=== PATIENT | male | born 1940 | race Hispanic/Latino ===

== ENCOUNTER 2017-09-19 11:44 | Inpatient (IN) | payer MEDICARE ==
[~2017-09-19] VITALS: Ht 170.2 cm; Wt 59.4 kg
[~2017-09-19 11:44] MED LIST: ASPIR 8181 MG PO; ASPIRIN325 MG PO; COLACE100 MG PO; DONEPEZIL HCL10 MG PO; FOLIC ACID1 MG PO; GEMFIBROZIL600 MG PO; METAMUCIL0.52 GM PO; METOPROLOL SUCC25 MG PO; MIRTAZAPINE30 MG PO; MONTELUKAST SOD10 MG PO; NAMENDA10 MG; NORVASC10 MG PO; SERTRALINE HCL25 MG PO; SIMVASTATIN40 MG PO; ZESTRIL20 MG PO
[2017-09-19] MEDS ORDERED: RANEXA500 MG PO (11:56)
[2017-09-19] MEDS ORDERED: NAMZARIC PO (11:56)
[2017-09-19] MEDS ORDERED: CLOPIDOGREL75 MG PO (11:56)
--- NOTE | 2017-09-19 12:30 | Diagnostic Imaging Report ---
PROCEDURE: A single AP view of the chest. COMPARISON: 05/12/17 INDICATIONS: AMS, FEVER, COUGH FINDINGS: Lines/tubes: None. Lungs: The lungs are well inflated. Mild right infrahilar opacification. Unchanged increased lung markings of the left upper lobe, likely mild scaring. Pleura: There is no pleural effusion or pneumothorax. Heart and mediastinum: The heart and the mediastinum are unremarkable. Median sternotomy wires and mediastinal surgical clips. Bones: No acute bony abnormality. IMPRESSION: Mild right infrahilar opacification. Developing infiltrate cannot be excluded. Dictated by: Vega Linda M.D. on 09/19/2017 at 12:38 Electronically approved by: Vega Linda M.D. on 09/19/2017 at 12:38
[2017-09-19 12:33] LABS: BASOPHILS % 0.3 % (0.0-1.0); EOSINOPHILS # (AUTO) 0.1 (0.0-0.4); EOSINOPHILS % 0.6 % (0.0-6.0); HEMATOCRIT 39.6 % (38.2-49.6); HEMOGLOBIN 12.8 g/dL (14.0-18.0); LYMPHOCYTES # (AUTO) 1.1 (1.0-3.2); MEAN CORPUSCULAR HEMOGLOBIN 29.1 pg (28-32); MEAN CORPUSCULAR HGB CONC 32.3 g/dL (31-35); MONOCYTES # (AUTO) 0.7 (0.2-0.8); NEUTROPHILS # (AUTO) 8.1 (2.1-6.9); NEUTROPHILS % 80.7 % (38.7-80.0); PLATELET COUNT 243 x10e3/uL (140-360); RED CELL DISTRIBUTION WIDTH 15.6 % (11.7-14.4)
[2017-09-19] MEDS ORDERED: SODIUM CHLORIDE 0.9% 500ML 500 ML IV ONE (12:45)
[2017-09-19] MEDS ORDERED: CEFTRIAXONE SOD 1 GM VIAL IM ONE (12:45)
[2017-09-19] MEDS ORDERED: CLINDAMYCIN 300MG 50 ML IV ONE (12:45)
[2017-09-19 12:50] LABS: ALBUMIN 3.8 g/dL (3.5-5.0); ALBUMIN/GLOBULIN RATIO 0.8 (0.8-2.0); CALCIUM 9.5 mg/dL (8.4-10.2); CREATININE, SERUM 1.36 mg/dL (0.72-1.25)
[2017-09-19 12:57] LABS: CREATINE KINASE MB 0.3 ng/mL (0.00-5.00); TROPONIN I 0.04 ng/mL (0-0.300)
[2017-09-19] MEDS ORDERED: SODIUM CHLORIDE 0.9% 1000ML 1,000 ML ONE (13:21)
[2017-09-19] MEDS: SODIUM CHLORIDE FLUSH 10 ML SYR INJ PRN (13:31)
[2017-09-19] MEDS ORDERED: ACETAMINOPHEN 325 MG TAB PO PRN (13:45)
[2017-09-19] MEDS ORDERED: SODIUM CHLORIDE FLUSH 10 ML SYR INJ PRN (13:45)
[2017-09-19] MEDS ORDERED: ONDANSETRON HCL INJ 2 MG/ML VIAL IV PRN (13:45)
[2017-09-19] MEDS ORDERED: AZITHROMYCIN 500MG/SOD CHL 0.9% 250ML BAG IV SCH (13:45)
[2017-09-19] MEDS: CEFTRIAXONE SOD 1 GM VIAL IV SCH (13:46)
[2017-09-19] MEDS: SODIUM CHLORIDE 0.9% 1000ML 1,000 ML IV SCH ×2 (13:46→21:34)
[2017-09-19] MEDS ORDERED: CLINDAMYCIN 300MG 50 ML IV SCH ×2 (14:00→14:09)
[2017-09-19] MEDS: AZITHROMYCIN 500MG/NS 250 ML 250 ML IV SCH (16:06)
[2017-09-19 17:34] VITALS: BP 95/57
[2017-09-19 17:47] VITALS: BP 95/57
[2017-09-19 20:00] VITALS: BP 100/45
[2017-09-19] MEDS: CLINDAMYCIN 300MG 50 ML IV SCH (22:15)
[2017-09-20] VITALS: BP 99/57
[2017-09-20 04:00] VITALS: BP 98/59
[2017-09-20] MEDS: SODIUM CHLORIDE 0.9% 1000ML 1,000 ML IV SCH ×3 (05:34→14:00)
--- NOTE | 2017-09-20 06:22 | Diagnostic Imaging Report ---
CHEST SINGLE (PORTABLE), 09/20/2017 5:00 AM Technique: CHEST SINGLE (PORTABLE) Comparison: 09/19/2017 Clinical history: Pneumonia Findings: See Impression Impression: 1. Stable cardiomediastinal silhouette post sternotomy. 2. Central vascular congestion with mild bibasilar vascular crowding/atelectasis. 3. No effusion or pneumothorax. Signed by: Dr Libby Weaver MD on 09/20/2017 6:19 AM
[2017-09-20 06:49] LABS: BASOPHILS % 0.3 % (0.0-1.0); EOSINOPHILS # (AUTO) 0.2 (0.0-0.4); EOSINOPHILS % 2.2 % (0.0-6.0); HEMATOCRIT 31.1 % (38.2-49.6); LYMPHOCYTES # (AUTO) 2.6 (1.0-3.2); LYMPHOCYTES % 24.6 % (18.0-39.1); MEAN CORPUSCULAR HEMOGLOBIN 29.1 pg (28-32); MEAN CORPUSCULAR HGB CONC 32.2 g/dL (31-35); MEAN CORPUSCULAR VOLUME 90.4 fL (81-99); MONOCYTES # (AUTO) 0.9 (0.2-0.8); MONOCYTES % 8.1 % (4.4-11.3); NEUTROPHILS # (AUTO) 6.9 (2.1-6.9); NEUTROPHILS % 64.1 % (38.7-80.0); PLATELET COUNT 181 x10e3/uL (140-360); RED BLOOD COUNT 3.44 x10e6/uL (4.3-5.7); RED CELL DISTRIBUTION WIDTH 15.7 % (11.7-14.4)
[2017-09-20 07:10] LABS: ALANINE AMINOTRANSFERASE 9 IU/L (0-55); ALBUMIN 2.7 g/dL (3.5-5.0); ALBUMIN/GLOBULIN RATIO 0.8 (0.8-2.0); ALKALINE PHOSPHATASE 87 IU/L (40-150); ANION GAP 10.1 mmol/L (8-16); BLOOD UREA NITROGEN 25 mg/dL (7-26); BUN/CREATININE RATIO 22 (6-25); CALCIUM 8.4 mg/dL (8.4-10.2); CARBON DIOXIDE 25 mmol/L (22-29); CHLORIDE 109 mmol/L (98-107); CREATININE, SERUM 1.14 mg/dL (0.72-1.25); EST GLOMERULAR FILTRATION RATE > 60 ML/MIN (60-); GLUCOSE 81 mg/dL (74-118); POTASSIUM 4.1 mmol/L (3.5-5.1); SODIUM 140 mmol/L (136-145)
[2017-09-20] MEDS: CLINDAMYCIN 300MG 50 ML IV SCH ×4 (07:24→18:27)
[2017-09-20 07:48] VITALS: BP 128/72
[2017-09-20] MEDS: CEFTRIAXONE SOD 1 GM VIAL IV SCH (13:13)
[2017-09-20 13:30] VITALS: BP 135/98
[2017-09-20] MEDS: AZITHROMYCIN 500MG/NS 250 ML 250 ML IV SCH (18:30)
[2017-09-20] MEDS: SODIUM CHLORIDE FLUSH 10 ML SYR INJ PRN (18:30)
[2017-09-20 21:50] LABS: BILIRUBIN,URINE NEGATIVE (NEGATIVE); CLARITY,URINE CLEAR (CLEAR); COLOR,URINE YELLOW (YELLOW); KETONES,URINE NEGATIVE (NEGATIVE); LEUKOCYTE ESTERASE ,URINE NEGATIVE (NEGATIVE); NITRITE,URINE NEGATIVE (NEGATIVE); PROTEIN,URINE DIPSTICK NEGATIVE (NEGATIVE); URINE UROBILINOGEN 1 mg/dL (0.2 - 1)
[2017-09-20 21:55] LABS: BACTERIA,URINE RARE /HPF; MUCUS,URINE FEW (RARE); WBC,URINE (MAN) 0-5 /HPF (0-5)
[2017-09-21] MEDS: SODIUM CHLORIDE 0.9% 1000ML 1,000 ML IV SCH ×3 (01:15→13:34)
[2017-09-21] MEDS: CLINDAMYCIN 300MG 50 ML IV SCH ×3 (01:16→18:00)
[2017-09-21 11:35] VITALS: BP 139/74
[2017-09-21 14:42] VITALS: BP 149/75
[2017-09-21] MEDS: CEFTRIAXONE SOD 1 GM VIAL IV SCH (16:01)
[2017-09-21] MEDS: AZITHROMYCIN 500MG/NS 250 ML 250 ML IV SCH (16:55)
[2017-09-21 19:30] VITALS: BP 137/71
[2017-09-22] VITALS: BP 131/76
[2017-09-22] MEDS: CLINDAMYCIN 300MG 50 ML IV SCH ×2 (02:00→11:26)
[2017-09-22] MEDS: SODIUM CHLORIDE 0.9% 1000ML 1,000 ML IV SCH ×3 (03:00→13:34)
[2017-09-22 04:00] VITALS: BP 124/69
[2017-09-22 06:23] LABS: BASOPHILS % 0.6 % (0.0-1.0); EOSINOPHILS # (AUTO) 0.3 (0.0-0.4); EOSINOPHILS % 4.3 % (0.0-6.0); HEMATOCRIT 28.8 % (38.2-49.6); HEMOGLOBIN 9.5 g/dL (14.0-18.0); LYMPHOCYTES # (AUTO) 1.9 (1.0-3.2); LYMPHOCYTES % 27.4 % (18.0-39.1); MEAN CORPUSCULAR HEMOGLOBIN 29.1 pg (28-32); MEAN CORPUSCULAR VOLUME 88.3 fL (81-99); MONOCYTES # (AUTO) 0.5 (0.2-0.8); MONOCYTES % 7.5 % (4.4-11.3); NEUTROPHILS # (AUTO) 4.1 (2.1-6.9); NEUTROPHILS % 59.9 % (38.7-80.0); PLATELET COUNT 175 x10e3/uL (140-360); RED BLOOD COUNT 3.26 x10e6/uL (4.3-5.7); RED CELL DISTRIBUTION WIDTH 15.8 % (11.7-14.4)
[2017-09-22 06:56] LABS: ANION GAP 9.9 mmol/L (8-16); BLOOD UREA NITROGEN 13 mg/dL (7-26); BUN/CREATININE RATIO 15 (6-25); CALCIUM 8.3 mg/dL (8.4-10.2); CARBON DIOXIDE 24 mmol/L (22-29); CHLORIDE 113 mmol/L (98-107); CREATININE, SERUM 0.88 mg/dL (0.72-1.25); EST GLOMERULAR FILTRATION RATE > 60 ML/MIN (60-); GLUCOSE 85 mg/dL (74-118); POTASSIUM 3.9 mmol/L (3.5-5.1); SODIUM 143 mmol/L (136-145)
[2017-09-22 07:36] VITALS: BP 143/80
--- NOTE | 2017-09-22 10:11 | Diagnostic Imaging Report ---
PROCEDURE: X-RAY CHEST, TWO VIEWS COMPARISON: Patients [facility], DX, CHEST SINGLE (PORTABLE), 09/20/2017, 5:04. INDICATIONS: PNEUMONIA FINDINGS: LUNGS: Resolution of the previously identified central vascular congestion. Residual right basilar medial opacity may represent pneumonia in the correct clinical setting. PLEURA: No effusions or pneumothorax. HEART \T\ MEDIASTINUM: The heart is within normal size-limits. There are sternotomy wire sutures and mediastinal clips. BONES \T\ SOFT TISSUES: No acute findings. Degenerative changes of the spine. CONCLUSION: 1. Resolution of the previously identified vascular congestion. 2. Residual right medial basilar opacity may represent resolving pneumonia in the correct clinical setting. Santana Coffey D.O. Dictated by: Santana Coffey D.O. on 09/22/2017 at 10:19 Electronically approved by: Santana Coffey D.O. on 09/22/2017 at 10:19
[2017-09-22 11:36] VITALS: BP 146/85
[2017-09-22] MEDS ORDERED: CEFTIN250 MG/5 M PO (14:37)
[2017-09-22] MEDS ORDERED: OLANZAPINE 5 MG TAB PO PRN (14:45)
--- NOTE | 2017-09-22 15:45 | Consultation ---
DATE OF CONSULTATION: September 21, 2017 PSYCHIATRIC CONSULTATION The patient was seen yesterday, September 21, 2017. [employer] was not working properly remotely, so medications were not able to be adjusted at that time. REASON FOR CONSULTATION: To evaluate the patient's behavior. HISTORY OF PRESENT ILLNESS: The patient is a 77-year-old male admitted to the hospital for pneumonia. Psychiatric consultation is called to evaluate the patient's psychosis and dementia. As per medical record, the patient has history of dementia. The patient was found to be in the room. He is ambulatory. He is alert, awake and oriented to self and place, but not to time. He is pleasant, unable to answer questions appropriately. He denies any depression or anxiety. He denies hallucination. He is somewhat suspicious. He denies any suicidal or homicidal ideation. He denies any problem with sleep or appetite. He denies any side effects from his medications. PAST PSYCHIATRIC HISTORY: Patient has a history of dementia as per record. He denies past suicide attempt. He denies alcohol or drug use. FAMILY HISTORY: The patient denies any family history of psychiatric illness. SOCIAL HISTORY: The patient said he lives with his . MENTAL STATUS EXAMINATION: The patient is an elderly male. He is alert, awake and oriented to situation, self and place. Thought process is concrete. He does not elicit paranoid or delusional thinking, but is somewhat suspicious. Affect is blunt. Psychomotor state is passive and relaxed. Insight and judgment are limited to fair. Memory is grossly impaired. CURRENT MEDICATIONS 1. Ceftriaxone. 2. Clindamycin. 3. Acetaminophen. 4. Azithromycin. 5. Sodium chloride. 6. Ondansetron. LABS: WBC 10.71, RBC 3.44, hemoglobin 10, hematocrit 31.1, platelets 181. Sodium 140, potassium 4.1, chloride 109, CO2 25, BUN 25, creatinine 1.14. ASSESSMENT: Unspecified dementia with behavioral disturbances, rule out psychosis. PLAN 1. Add Zyprexa 2.5 mg p.o. q.6 h. p.r.n. 2. Add Namenda 5 mg p.o. daily. Thank you for this consultation. Dictated by: OSCAR Jain Job#: [id number]
[2017-09-23] MEDS ORDERED: MEMANTINE 10 MG TAB PO SCH (09:00)
== END 2017-09-22 14:55 | disposition home or self-care (01) | DRG 871 ==
LOC: ER 11:44 → ERHOLD 14:05 → IMCU 16:30
DX: A41.9 Sepsis, unspecified organism (principal); J18.9 Pneumonia, unspecified organism; N39.0 Urinary tract infection, site not specified; F03.91 Unspecified dementia, unspecified severity, with behavioral disturbance; I10 Essential (primary) hypertension; Z79.899 Other long term (current) drug therapy
CPT/HCPCS: 36415; 71010; 71020; 80048; 80053; 81001; 82550; 82553; 82948; 83605; 84484; 85025; 87040; 87086; 87400; 93005; 97139; 99284; J0456; J0696; J7030; J7040

== ENCOUNTER 2018-01-02 16:16 | Inpatient (IN) | payer MEDICARE ==
[~2018-01-02] VITALS: Ht 165.1 cm; Wt 58.5 kg
[2018-01-02] VITALS (7 sets, daily range): BP systolic 84–107; BP diastolic 29–70
[~2018-01-02 16:16] MED LIST changes: +CEFTIN250 MG/5 M PO; +CLOPIDOGREL75 MG PO; +NAMZARIC PO; +RANEXA500 MG PO
--- OUTSIDE RECORDS SUMMARY | 2018-01-02 16:19 | XMS REPORT ---
Author [facility] Address Unknown Phone Unavailable Care Team Providers Care Invoice Machine Operator Name Role Phone MARY VILLAGOMEZ Unavailable Unavailable Problems This patient has no known problems. Allergies, Adverse Reactions, Alerts This patient has no known allergies or adverse reactions. Medications This patient has no known medications. Results Test Description Test Time Test Comments Text Results Atomic Results Result Comments CHEST 2 VIEWS [place] [address] Patient Name: AMANDA OWENS MR #: [id number] : 1940 Age/Sex: 77/M Req # : [id number] [facility] Physician: MARY VILLAGOMEZ MD Ordered by: MARY VILLAGOMEZ MD Report #: [id number] Location: [facility] Room/Bed: [place] [address] Procedure: [id number] DX/CHEST 2 VIEWS Exam Date: 09/22/17 Exam Time: 0835 REPORT STATUS: Signed PROCEDURE: X-RAY CHEST, TWO VIEWS COMPARISON: [facility], DX, CHEST SINGLE ( PORTABLE), 09/20/2017, 5:04. INDICATIONS: PNEUMONIA FINDINGS: LUNGS: Resolution of the previously identified central vascular congestion. Residual right basilar medial opacity may represent pneumonia in the correct clinical setting. PLEURA: No effusions or pneumothorax. HEART T MEDIASTINUM: The heart is within normal size-limits. There are sternotomy wire sutures and mediastinal clips. BONES T SOFT TISSUES: No acute findings. Degenerative changes of the spine. CONCLUSION: 1. Resolution of the previously identified vascular congestion. 2. Residual right medial basilar opacity may represent resolving pneumonia in the correct clinical setting. Ashley Coffey D.O. Dictated by: Ashley Coffey D.O. on 09/22/2017 at 10:19 Electronically approved by: Ashley Coffey D.O. on 09/22/2017 at 10:19 Dictated By: ASHLEY COFFEY DO 1019 Transcribed By: SUE on 09/22/17 1019 COPY TO: MARY VILLAGOMEZ MD CHEST SINGLE (PORTABLE) [place] [address] Patient Name: AMANDA OWENS MR #: [id number] : 1940 Age/Sex: 77/M Req #: [id number] [facility] Physician: MARY VILLAGOMEZ MD Ordered by: [address] Report #: [id number] Location: [facility] Room/Bed: [place] [address] Procedure: [id number] DX/CHEST SINGLE (PORTABLE) Exam Date: 09/20/17 Exam Time: 0450 REPORT STATUS: Signed CHEST SINGLE (PORTABLE), 09/20/2017 5:00 AM Technique: CHEST SINGLE (PORTABLE) Comparison: 09/19/2017 Clinical history: Pneumonia Findings: See Impression Impression: 1. Stable cardiomediastinal silhouette post sternotomy. 2. Central vascular congestion with mild bibasilar vascular crowding/atelectasis. 3. No effusion or pneumothorax. Signed by: Dr Souleymane Weaver MD on 09/20/2017 6:19 AM Dictated By: SOULEYMANE WEAVER MD 8 Transcribed By: YONATAN on 09/20/17618 COPY TO: [address] CHEST SINGLE (PORTABLE) [place] [address] Patient Name: AMANDA OWENS MR #: [id number] : 1940 Age/Sex: 77/M Req #: [id number] Adm Physician: Ordered by: [address] Report #: [id number] Location: ER Room/Bed: _ Procedure: [id number] DX/CHEST SINGLE (PORTABLE) Exam Date: 09/19/17 Exam Time: 1200 REPORT STATUS: Signed PROCEDURE: A single AP view of the chest. COMPARISON: 05/12/17 INDICATIONS: AMS, FEVER, COUGH FINDINGS: Lines/tubes: None. Lungs: The lungs are well inflated. Mild right infrahilar opacification. Unchanged increased lung markings of the left upper lobe, likely mild scaring. Pleura: There is no pleural effusion or pneumothorax. Heart and mediastinum: The heart and the mediastinum are unremarkable. Median sternotomy wires and mediastinal surgical clips. Bones: No acute bony abnormality. IMPRESSION: Mild right infrahilar opacification. Developing infiltrate cannot be excluded. Dictated by: Vega Kiser M.D. on 09/19/2017 at 12:38 Electronically approved by: Vega Kiser M.D. on 09/19/2017 at 12:38 Dictated By: VEGA KISER MD 1238 Transcribed By: SUE on 09/19/17 1238 COPY TO: [address]
[2018-01-02] MEDS ORDERED: NAMZARIC (16:38)
[2018-01-02] MEDS ORDERED: METOCLOPRAMIDE HCL 10 MG TAB PO ONE (17:00)
[2018-01-02] MEDS ORDERED: METOCLOPRAMIDE HCL 10 MG/2ML VIAL IV ONE (17:30)
[2018-01-02 18:08] LABS: BILIRUBIN,URINE NEGATIVE (NEGATIVE); CLARITY,URINE CLOUDY (CLEAR); COLOR,URINE YELLOW (YELLOW); KETONES,URINE NEGATIVE (NEGATIVE); LEUKOCYTE ESTERASE ,URINE TRACE (NEGATIVE); NITRITE,URINE NEGATIVE (NEGATIVE); PROTEIN,URINE DIPSTICK NEGATIVE (NEGATIVE); URINE UROBILINOGEN 0.2 mg/dL (0.2 - 1)
[2018-01-02 18:17] LABS: BASOPHILS % 0.5 % (0.0-1.0); EOSINOPHILS # (AUTO) 0.1 (0.0-0.4); EOSINOPHILS % 0.8 % (0.0-6.0); HEMATOCRIT 36.6 % (38.2-49.6); HEMOGLOBIN 11.8 g/dL (14.0-18.0); LYMPHOCYTES # (AUTO) 1.4 (1.0-3.2); LYMPHOCYTES % 15.7 % (18.0-39.1); MEAN CORPUSCULAR HEMOGLOBIN 30.4 pg (28-32); MEAN CORPUSCULAR HGB CONC 32.2 g/dL (31-35); MEAN CORPUSCULAR VOLUME 94.3 fL (81-99); MONOCYTES # (AUTO) 0.6 (0.2-0.8); MONOCYTES % 7.3 % (4.4-11.3); NEUTROPHILS # (AUTO) 6.6 (2.1-6.9); NEUTROPHILS % 75.2 % (38.7-80.0); PLATELET COUNT 244 x10e3/uL (140-360); RED BLOOD COUNT 3.88 x10e6/uL (4.3-5.7)
[2018-01-02 18:19] LABS: ALBUMIN 4.3 g/dL (3.5-5.0); ANION GAP 15.8 mmol/L (8-16); CALCIUM 9.5 mg/dL (8.4-10.2); CREATININE, SERUM 3.18 mg/dL (0.72-1.25); MAGNESIUM 2.5 MG/DL (1.3-2.1); PHOSPHORUS 3.7 MG/DL (2.3-4.7)
[2018-01-02 18:30] LABS: POTASSIUM 7.8 mmol/L (3.5-5.1)
[2018-01-02] MEDS ORDERED: DEXTROSE 50% SYRINGE 50 ML IV STA ×2 (18:33→23:18)
[2018-01-02] MEDS ORDERED: SODIUM BICARBONATE 8.4% 50 ML VIAL IV STA (18:33)
[2018-01-02] MEDS ORDERED: ALBUTEROL SULF 0.083% NEB SOLN 3 ML NEB NEB STA (18:33)
[2018-01-02 18:39] LABS: THYROID STIMULATING HORMONE 1.694 uIU/mL (0.350-4.940)
[2018-01-02] MEDS ORDERED: INSULIN REGULAR, HUMAN 100 UNIT/1 ML 3ML VIAL IV ONE ×2 (18:45→23:30)
[2018-01-02] MEDS ORDERED: CALCIUM GLUCONATE 10% INJ 9.3 MEQ in SODIUM CHLORIDE 0.9% 100 ML 100 ML IV ONE ×2 (18:45→23:30)
[2018-01-02] MEDS ORDERED: SODIUM BICARBONATE 8.4% INJ 50 ML SYR IV NR (18:45)
[2018-01-02] MEDS ORDERED: SOD POLYSTYRENE SULFONATE SUSP 15 GM/60 ML BTL PR ONE ×2 (18:45→23:30)
[2018-01-02] MEDS ORDERED: SODIUM CHLORIDE 0.9% 1000ML 1,000 ML IV ONE (18:45)
[2018-01-02] MEDS ORDERED: ONDANSETRON HCL INJ 2 MG/ML VIAL IV PRN (19:00)
[2018-01-02] MEDS ORDERED: SODIUM CHLORIDE FLUSH 10 ML SYR INJ PRN (19:00)
--- NOTE | 2018-01-02 19:16 | Diagnostic Imaging Report ---
Knee limited left CPT code: 71044 Indication: Fall, pain. Technique: AP and lateral view obtained of the left knee. Comparison: None Findings: Moderate to severe degenerative changes of the lateral compartment with chondrocalcinosis of the lateral meniscus. Moderate degenerative changes of the patellofemoral compartment. Mild degenerative changes of the medial compartment. No joint effusion. Vascular dominick along the medial aspect of the knee. No fracture or dislocation. IMPRESSION: Tricompartmental osteoarthritis with chondrocalcinosis. No acute traumatic pathology. Signed by: Dr. Charmaine Spain MD on 01/02/2018 7:12 PM
--- NOTE | 2018-01-02 19:19 | Diagnostic Imaging Report ---
Abdomen/KUB INDICATION: Fall, pain, hiccups COMPARISON: None. FINDINGS: Lines, tubes: None Bowel: Gaseous dilatation of the sigmoid colon without pneumatosis. Exact diameter of the sigmoid colon cannot be given due to patient positioning. Moderate amount of stool throughout the ascending, transverse, and proximal descending colon. No dilated small bowel. Calcifications: None Organomegaly: None Lung bases: Median sternotomy wires are intact. Cardiac bypass changes are present. Bones: No focal osseous lesions. IMPRESSION: Gaseous dilatation of the sigmoid colon. Moderate stool burden throughout the large bowel. Sigmoid volvulus cannot be excluded. No evidence of small bowel obstruction. Signed by: Dr. Charmaine Spain MD on 01/02/2018 7:15 PM
[2018-01-02] MEDS ORDERED: CALCIUM GLUCONATE 10% INJ 0.465 MEQ/ML VIAL ONE ×2 (19:20→23:46)
[2018-01-02] MEDS ORDERED: SODIUM CHLORIDE 0.9% 50ML 100 ML ONE (19:21)
[2018-01-02 22:59] LABS: ANION GAP 11.5 mmol/L (8-16); CALCIUM 8.9 mg/dL (8.4-10.2); CREATININE, SERUM 2.89 mg/dL (0.72-1.25)
[2018-01-02 23:08] LABS: POTASSIUM 6.5 mmol/L (3.5-5.1)
[2018-01-02] MEDS ORDERED: SIMETHICONE 80 MG CHEW PO PRN (23:30)
[2018-01-02] MEDS ORDERED: LORAZEPAM INJ 2 MG/ML VIAL IV PRN (23:45)
[2018-01-03] VITALS (106 sets, daily range): BP systolic 61–151; BP diastolic 30–87
[2018-01-03] MEDS ORDERED: SODIUM CHLORIDE 0.9% 500ML 500 ML ONE (00:05)
[2018-01-03] MEDS ORDERED: ZIPRASIDONE 20 MG VIAL IM STA (00:19)
[2018-01-03] MEDS ORDERED: ZIPRASIDONE 20 MG VIAL IM ONE (00:25)
[2018-01-03] MEDS ORDERED: SODIUM CHLORIDE 0.9% 1000ML 1,000 ML ONE (00:39)
[2018-01-03] MEDS ORDERED: ALBUMIN HUMAN 100 ML IV ONE (01:12)
[2018-01-03] MEDS ORDERED: SODIUM CHLORIDE 0.45% 1,000 ML ONE (01:13)
[2018-01-03] MEDS ORDERED: SODIUM CHLORIDE 0.9% 1000ML 1,000 ML IV ONE ×2 (02:00)
[2018-01-03] MEDS ORDERED: DEXTROSE 50% SYRINGE 50 ML IV PRN (02:00)
[2018-01-03] MEDS ORDERED: ALBUMIN HUMAN 12.5GM / 50ML IV ONE (02:00)
[2018-01-03] MEDS ORDERED: DEXTROSE 50% SYRINGE 50 ML IV ONE ×2 (02:01→06:45)
[2018-01-03 04:02] LABS: BASOPHILS % 0.1 % (0.0-1.0); EOSINOPHILS # (AUTO) 0.1 (0.0-0.4); EOSINOPHILS % 0.6 % (0.0-6.0); HEMATOCRIT 26.2 % (38.2-49.6); HEMOGLOBIN 8.3 g/dL (14.0-18.0); LYMPHOCYTES # (AUTO) 1.2 (1.0-3.2); LYMPHOCYTES % 16.1 % (18.0-39.1); MEAN CORPUSCULAR HEMOGLOBIN 30.2 pg (28-32); MEAN CORPUSCULAR HGB CONC 31.7 g/dL (31-35); MEAN CORPUSCULAR VOLUME 95.3 fL (81-99); MONOCYTES # (AUTO) 0.8 (0.2-0.8); MONOCYTES % 10.8 % (4.4-11.3); NEUTROPHILS # (AUTO) 5.6 (2.1-6.9); NEUTROPHILS % 71.9 % (38.7-80.0); PLATELET COUNT 172 x10e3/uL (140-360); RED BLOOD COUNT 2.75 x10e6/uL (4.3-5.7); RED CELL DISTRIBUTION WIDTH 14.3 % (11.7-14.4)
[2018-01-03 04:19] LABS: ANION GAP 12.9 mmol/L (8-16); CALCIUM 8.9 mg/dL (8.4-10.2); CREATININE, SERUM 2.52 mg/dL (0.72-1.25); MAGNESIUM 1.9 MG/DL (1.3-2.1); PHOSPHORUS 3.4 MG/DL (2.3-4.7); POTASSIUM 5.9 mmol/L (3.5-5.1)
[2018-01-03] MEDS ORDERED: SODIUM BICARBONATE 8.4% INJ 50 ML SYR IV STA (06:44)
[2018-01-03] MEDS ORDERED: INSULIN REGULAR, HUMAN 100 UNIT/1 ML 3ML VIAL IV ONE (06:45)
[2018-01-03] MEDS ORDERED: ALBUMIN 5% 250ML IV ONE (06:45)
[2018-01-03] MEDS ORDERED: ALBUMIN 5% 500 ML IV ONE (07:20)
[2018-01-03] MEDS ORDERED: CALCIUM GLUCONATE 10% INJ 4.65 MEQ in SODIUM CHLORIDE 0.9% 50ML 50 ML IV ONE (07:30)
[2018-01-03] MEDS ORDERED: SODIUM BICARBONATE 8.4% 75 ML in SODIUM CHLORIDE 0.45% 1,000 ML IV SCH (07:45)
[2018-01-03] MEDS ORDERED: SODIUM BICARBONATE 8.4% 100 ML in DEXTROSE 5% 1,000 ML IV SCH (13:45)
[2018-01-03 14:09] LABS: CREATININE,URINE RANDOM 116.89 mg/dL (63-166); SODIUM,URINE 42 mmol/L; TOTAL PROTEIN, URINE 6.8 mg/dL (1-14)
[2018-01-03 14:52] LABS: BLOOD UREA NITROGEN 42 mg/dL (7-26); GLUCOSE 82 mg/dL (74-118); OSMOLALITY,SERUM 298 mOsm/kg (278-305); SODIUM 145 mmol/L (136-145)
[2018-01-03 14:54] LABS: ANION GAP 11.8 mmol/L (8-16); CALCIUM 8.9 mg/dL (8.4-10.2); CREATININE, SERUM 1.79 mg/dL (0.72-1.25); POTASSIUM 4.8 mmol/L (3.5-5.1)
--- NOTE | 2018-01-03 15:20 | Consultation ---
DATE OF CONSULTATION: January 03, 2018 NEPHROLOGY CONSULT REASON FOR THE CONSULT: Acute renal failure and hyperkalemia. HISTORY OF PRESENT ILLNESS: This is a 77-year-old male who is known to have hypertension on lisinopril and CKD stage 2, creatinine around 1.1 previous admissions. Recently admitted for pneumonia. He also has coronary artery disease status post CABG x3 with a recent left heart cath in May of [address] José Luis Luciano, and at that time the patient was felt that his potassium was slightly elevated. So, the patient at this time has come in because of generalized weakness, decrease in p.o. intake along with frequent falling and decrease in energy. So, he was admitted through the ER, for which it was noted that his BUN and creatinine were elevated along with his high potassium, and thus we are consulted. Overnight the patient was severely constipated. He was given enema, and his blood pressure dropped. At that time, he was bolused with fluids and given albumin, and he is currently on IV fluids. He is status post the medical treatment for potassium, and his potassium is coming down. PAST MEDICAL HISTORY: As mentioned above. PAST SURGICAL HISTORY: Status post bypass x3, status post left heart cath. SOCIAL HISTORY: Denies smoking, alcohol or IV drug abuse. Living with a daughter. ALLERGIES: NEGATIVE PER RECORDS. VITAL SIGNS: For today, blood pressure is better at 102/63, heart rate 72, and temperature is 97.5. PHYSICAL EXAMINATION GENERAL APPEARANCE: No acute distress. He is oriented to person and self. HEAD, EARS, EYES, NECK: No lymphadenopathy. HEART: Regular rate and rhythm. LUNGS: Good bilateral air entry. ABDOMEN: Soft, nontender. EXTREMITIES: No edema. LABS: His hemoglobin was 8.3, down from 11.8. His sodium is 144, potassium is down from 7.8 to 5.9, his CO2 is 19, BUN is coming down from 71 to 58, and his creatinine came down from 3.1 to 2.5. His phosphorus is 3.4, magnesium 1.9. LFTs are normal, and TSH is okay. ASSESSMENT AND PLAN 1. Acute renal failure. This could be secondary to volume depletion and dehydration. So, at this time the patient is started on IV fluids and his BUN/creatinine is already improving. Check fraction excretion of sodium. We are going to check renal ultrasound with Doppler also to rule out renal artery stenosis and check for urine culture as his urine was cloudy upon insertion. Also, there might be an element of urine retention as when the Ramirez was inserted the patient had a lot of urine coming out and it was cloudy, but it was probably sitting there for a while; so, there might be a sign of urine retention. Keep the Ramirez for now and at the same time monitor his electrolytes closely. 2. Hyperkalemia in the setting of renal failure. The patient was also on lisinopril, which we are going to stop. Will check renal ultrasound to rule out renal artery stenosis and avoid NSAIDs and monitor his electrolytes. He is status post insulin, D50, calcium gluconate, bicarb, Kayexalate, and his potassium is coming down. Latest was 5.9. We are going to recheck. If it is improving, there is no urgent need for dialysis. We will just keep monitoring his labs for now. 3. Hypertension. The patient is presenting with low blood pressure, and he is status post albumin and IV fluids, responding well so far. Holding lisinopril in the setting of MODESTA. 4. Coronary artery disease status post coronary artery bypass graft. We will consult Dr. Luciano to follow up on the patient. Consider repeating an echo. 5. Possible urinary tract infection. Check for urine culture. 6. Alzheimer and dementia. He should be on Namenda, which he takes 20 mg daily. We are going to resume, and he is on Remeron 30 nightly and Zoloft for depression. He was seen by Psychiatry before. We are going to monitor closely. Thank you for the consult. We will update the primary team for further recommendations. In the meantime, we are going to monitor his kidney function very closely, holding his blood pressure medications and giving IV resuscitation and rechecking his potassium on regular basis to monitor and make sure it is coming down as no need for renal replacement therapy at this time as his BUN/creatinine is improving and his potassium is coming down. We are going to monitor closely. The case was discussed in detail with the family at bedside, especially the daughter, and also with the nurse. Job#: [id number] EV
[2018-01-03 15:45] LABS: EOSINOPHIL SMEAR,URINE NONE SEEN (NONE SEEN)
[2018-01-03] MEDS: SODIUM BICARBONATE 8.4% 75 ML in DEXTROSE 5% 1,000 ML IV SCH (16:12)
--- NOTE | 2018-01-03 17:55 | Diagnostic Imaging Report ---
PROCEDURE:US RETROPERITONEAL ( KIDNEY ). COMPARISON:None. INDICATIONS:MODESTA TECHNIQUE: Correia-scale and color sonographic images of the kidneys and bladder where obtained in transverse and longitudinal planes. FINDINGS: RIGHT KIDNEY: Measures 8.4 cm in length Cysts: None Solid masses: None Stones: None Hydronephrosis: None Echogenicity: Increased LEFT KIDNEY: Measures 8.6 cm in length Cysts: None Solid masses: None Stones: None Hydronephrosis: None Echogenicity: Increased Bladder: Collapsed around a Ramirez catheter Prostate: Not visualized. No evidence of pelvic free fluid. Survey images of the liver demonstrate no focal abnormality. CONCLUSION: Increased renal echotexture consistent with medical renal disease. No hydronephrosis. Dictated by: Charmaine Spain M.D. on 01/03/2018 at 17:56 Electronically approved by: Charmaine Spain M.D. on 01/03/2018 at 17:56
--- NOTE | 2018-01-03 18:15 | Diagnostic Imaging Report ---
PROCEDURE: RENAL DOPPLER ULTRASOUND COMPARISON:[facility], US, US RETROPERITONEAL ( KIDNEY )., 01/03/2018, 15:21. INDICATIONS:R/O STENOSIS FINDINGS: Color and spectral Doppler interrogation of the renal vasculature was performed. RIGHT KIDNEY: The highest right main renal artery PSV is 37.6 cm/sec. The highest right proximal renal artery PSV is 35.7 cm/s The highest right main renal artery PSV is 21.9 cm/s. The highest right distal renal artery PSV is 19.3 cm/s. The highest right hilar artery PSV is 21.9 cm/sec (superior segment). The highest right mid segmental renal artery PSV is 19.7 cm/s The highest right inferior segmental renal artery PSV is 14.9 cm/s. Right renal artery PSV/aorta PSV : 0.79 LEFT KIDNEY: The left main renal artery is poorly visualized due to bowel gas and patient's poor cooperation. The distal main renal artery PSV is 17.5 cm/s. The highest left superior segment renal artery PSV is 19.7 cm/s. The highest left mid segmental renal artery PSV is 18.4 cm/s. The highest left inferior segmental artery PSV 21.9 cm/s. Left renal artery PSV/aorta PSV: 0.36 The proximal aorta cannot be visualized. The celiac and SMA cannot be visualized. Distal aortic PSV is 47.8 The IVC is patent. The right renal vein is patent. The left renal vein cannot be visualized. CONCLUSION: 1. Nondiagnostic evaluation of the left renal arteries due to patient uncooperative status and bowel gas. 2. Diminished velocities of the right renal artery could be due to hypovolemia. Dictated by: Charmaine Spain M.D. on 01/03/2018 at 18:16 Electronically approved by: Charmaine Spain M.D. on 01/03/2018 at 18:16
--- NOTE | 2018-01-03 21:54 | Consultation ---
DATE OF CONSULTATION: January 03, 2018 REQUESTING PHYSICIAN: Dr. Rodrick Avila. REASON FOR CONSULTATION: Coronary artery disease. HISTORY OF PRESENT ILLNESS: This is a 77-year-old man with history of coronary artery disease status post coronary artery bypass graft in 2016, carotid artery disease, hypertension, hyperlipidemia, and chronic kidney disease, stage 2, who was brought to the ER with altered mental status. The patient's daughter states the patient had been hiccuping for the last 3 days. He started becoming weak yesterday and had difficulty supporting himself. The day of admission the patient's caregiver noted he was behaving different from his baseline, indicating that he was babbling and making sense. They, therefore, brought the patient to the ER for further evaluation. On arrival, he was noted to be hyperkalemic to 7.8 with acute renal failure with creatinine of 3.18. However, the patient's daughter indicates he has not had any difficulty with p.o. intake. The daughter states the patient has not complained of any chest pain, shortness of breath, palpitations, edema or orthopnea. Overnight, the patient was hypotensive and required fluids and albumin for blood pressure support. He is currently quit somnolent as he was given Geodon and lorazepam this morning. REVIEW OF SYSTEMS: Unable to obtain secondary to altered mental status. PAST MEDICAL HISTORY: 1. Coronary artery disease, status post CABG with occluded saphenous vein graft to OM. 2. Carotid artery disease. 3. Hypertension. 4. Hyperlipidemia. 5. Chronic kidney disease stage 2. PAST SURGICAL HISTORY: A 3-vessel CABG. ALLERGIES: PLEASE SEE EMR. MEDICATIONS: Please see medication list. SOCIAL HISTORY: No tobacco, alcohol or illicit drugs. FAMILY HISTORY: Noncontributory. PHYSICAL EXAMINATION VITAL SIGNS: Temperature 97.8 degrees, pulse 86, respirations 92, blood pressure 124/67, oxygen saturation 100% on room air. GENERAL: Sedated, does not respond to questions. Well developed, well nourished in no acute distress. HEENT: Normocephalic, atraumatic. NECK: Supple. No thyromegaly or cervical lymphadenopathy. No carotid bruits. LUNGS: Clear to auscultation bilaterally. No wheezes or crackles. CARDIOVASCULAR: Normal rate, regular rhythm. No murmurs. Normal S1 and S2. ABDOMEN: Soft and nontender. Nondistended. Normoactive bowel sounds. EXTREMITIES: No edema. NEUROLOGIC: Somnolent, unable to assess. LABORATORY DATA: Sodium 147, potassium 4.8, chloride 118, CO2 of 22, BUN 42, creatinine 1.79, WBC 7.72, hemoglobin 8.3, hematocrit 26.2, platelets 172,000. EKG normal sinus rhythm, right bundle branch block, inferior infarct, age undetermined. Renal ultrasound increased renal echotexture consistent with medical renal disease, no hydronephrosis. IMPRESSION 1. Acute renal failure, improving. 2. Hyperkalemia, improving. 3. Coronary artery disease, status post 3-vessel coronary artery bypass graft. 4. Hypertension. 5. Hyperlipidemia. 6. Suspect urinary tract infection. RECOMMENDATIONS: Continue current cardiac medications. Monitor patient on telemetry. Fluids per Nephrology given MODESTA. Patient is without cardiac complaints. No further cardiac evaluation is indicated at this time. Thank you for this consult. We will continue to follow. Job#: [id number] VIRGILIO
[2018-01-04] VITALS (40 sets, daily range): BP systolic 76–162; BP diastolic 46–94
[2018-01-04] MEDS ORDERED: ACETAMINOPHEN 325 MG/10 ML UDC ONE ×2 (00:58→01:06)
[2018-01-04] MEDS: ACETAMINOPHEN 325 MG TAB PO PRN ×2 (01:06→23:09)
[2018-01-04 01:20] LABS: BASOPHILS % 0.4 % (0.0-1.0); EOSINOPHILS # (AUTO) 0.1 (0.0-0.4); HEMATOCRIT 24.3 % (38.2-49.6); LYMPHOCYTES # (AUTO) 1.8 (1.0-3.2); LYMPHOCYTES % 21.1 % (18.0-39.1); MEAN CORPUSCULAR HEMOGLOBIN 30.5 pg (28-32); MEAN CORPUSCULAR HGB CONC 32.9 g/dL (31-35); MEAN CORPUSCULAR VOLUME 92.7 fL (81-99); MONOCYTES # (AUTO) 0.9 (0.2-0.8); MONOCYTES % 10.7 % (4.4-11.3); NEUTROPHILS # (AUTO) 5.6 (2.1-6.9); NEUTROPHILS % 66.6 % (38.7-80.0); PLATELET COUNT 174 x10e3/uL (140-360); RED BLOOD COUNT 2.62 x10e6/uL (4.3-5.7); RED CELL DISTRIBUTION WIDTH 14.2 % (11.7-14.4)
[2018-01-04 01:24] LABS: INR 1.2; PROTHROMBIN TIME 14.3 seconds (11.9-14.5)
[2018-01-04 01:25] LABS: PARTIAL THROMBOPLASTIN TIME 34.8 seconds (23.8-35.5)
[2018-01-04 01:31] LABS: PHOSPHORUS 2.9 MG/DL (2.3-4.7)
[2018-01-04 01:33] LABS: ALBUMIN 3.4 g/dL (3.5-5.0); ALBUMIN/GLOBULIN RATIO 1.5 (0.8-2.0); CALCIUM 8.6 mg/dL (8.4-10.2); CREATININE, SERUM 1.58 mg/dL (0.72-1.25)
[2018-01-04 01:42] LABS: MAGNESIUM 1.5 MG/DL (1.3-2.1)
[2018-01-04 01:44] LABS: ANION GAP 12.1 mmol/L (8-16); POTASSIUM 4.1 mmol/L (3.5-5.1)
[2018-01-04] MEDS: SODIUM BICARBONATE 8.4% 75 ML in DEXTROSE 5% 1,000 ML IV SCH (02:10)
--- NOTE | 2018-01-04 06:07 | Diagnostic Imaging Report ---
CHEST SINGLE (PORTABLE), 01/04/2018 5:00 AM Technique: CHEST SINGLE (PORTABLE) Comparison: 09/20/2017 Clinical history: Fever Findings: See Impression Impression: 1. Stable cardiomediastinal silhouette poststernotomy. 2. Low lung volumes with mild bibasilar vascular crowding/atelectasis. No consolidation, effusion or pneumothorax. Signed by: Dr Libby Weaver MD on 01/04/2018 6:04 AM
--- NOTE | 2018-01-04 12:30 | Progress Note ---
DATE: January 04, 2018 CARDIOLOGY PROGRESS NOTE SUBJECTIVE: Patient is awake. He did not respond to questions due to baseline dementia. OBJECTIVE VITAL SIGNS: Temperature 99.6 degrees, pulse 82, respiratory rate 18, blood pressure 125/72, oxygen saturation 100% on 2 liters nasal cannula. GENERAL: Awake. No acute distress. LUNGS: Clear to auscultation bilaterally. No wheezes or crackles. CARDIOVASCULAR: Normal rate, regular rhythm. No murmur. Normal S1 and S2. ABDOMEN: Soft, nontender. EXTREMITIES: No edema. CARDIAC MEDICATIONS 1. Simvastatin 40 mg p.o. nightly. 2. Ranolazine 500 mg p.o. b.i.d. 3. Metoprolol succinate 25 mg p.o. daily. 4. Lisinopril 20 mg p.o. daily. 5. Plavix 75 mg p.o. daily. 6. Aspirin 325 mg p.o. daily. LABS: WBC 8.42, hemoglobin 8, hematocrit 24.3, platelets 174. Sodium 143, potassium 4.1, chloride 110, CO2 25, BUN 31, creatinine 1.58. TELEMETRY: Normal sinus rhythm. IMPRESSION 1. Acute renal failure, improving. 2. Hyperkalemia, resolved. 3. Fever. 4. Coronary artery disease, status post 3-vessel coronary artery bypass graft. 5. Hypertension. 6. Hyperlipidemia. 7. Suspect urinary tract infection. RECOMMENDATIONS: Continue current cardiac medications. Decision regarding antibiotics per primary service. Blood and urine cultures have been ordered. Monitor patient on telemetry while admitted. Patient is asymptomatic. No further cardiac evaluation is indicated at this time. Thank you for this consult. We will continue to follow. Job#: [id number]
[2018-01-04] MEDS ORDERED: CEFUROXIME AXETIL 250 MG PO SCH (17:00)
[2018-01-04] MEDS: RANOLAZINE 500 MG TABSR PO SCH (17:46)
[2018-01-04] MEDS: DOCUSATE SODIUM 100 MG CAP PO SCH (17:46)
[2018-01-04] MEDS: CEFUROXIME AXETIL 250 MG TAB PO SCH (17:46)
[2018-01-04] MEDS: SIMVASTATIN 40 MG TAB PO SCH (21:00)
[2018-01-04] MEDS ORDERED: NON-FORMULARY MEDICATION (Mirtazapine 30 MG) PO SCH (21:00)
[2018-01-04] MEDS: MONTELUKAST SODIUM 10 MG TAB PO SCH (22:30)
[2018-01-04] MEDS: MIRTAZAPINE 15 MG TAB PO SCH (22:30)
[2018-01-05] VITALS: BP 118/59
[2018-01-05 00:40] VITALS: BP 162/68
[2018-01-05 07:37] LABS: ANION GAP 9.7 mmol/L (8-16); CREATININE, SERUM 1.38 mg/dL (0.72-1.25); POTASSIUM 3.7 mmol/L (3.5-5.1)
[2018-01-05 07:38] LABS: CALCIUM 8.3 mg/dL (8.4-10.2); MAGNESIUM 1.3 MG/DL (1.3-2.1)
[2018-01-05 08:37] LABS: FERRITIN 345.33 ng/mL (21.81-274.66)
[2018-01-05] MEDS: MEMANTINE PO SCH (09:00)
[2018-01-05] MEDS ORDERED: LISINOPRIL 20 MG TAB PO SCH (09:00)
[2018-01-05] MEDS: DONEPEZIL PO SCH (09:00)
[2018-01-05] MEDS ORDERED: NON-FORMULARY MEDICATION (Sertraline Hcl 25 MG) PO SCH (09:00)
[2018-01-05 09:02] VITALS: BP 126/58
[2018-01-05] MEDS: DOCUSATE SODIUM 100 MG CAP PO SCH ×2 (09:17→16:08)
[2018-01-05] MEDS: ASPIRIN 325 MG TAB PO SCH (09:17)
[2018-01-05] MEDS: MEMANTINE 10 MG TAB PO SCH (09:17)
[2018-01-05] MEDS: CEFUROXIME AXETIL 250 MG TAB PO SCH ×2 (09:17→16:08)
[2018-01-05] MEDS: CLOPIDOGREL BISULFATE 75 MG TAB PO SCH (09:18)
[2018-01-05] MEDS: RANOLAZINE 500 MG TABSR PO SCH ×2 (09:18→16:32)
[2018-01-05] MEDS: SERTRALINE HCL 50 MG TAB PO SCH (09:18)
[2018-01-05] MEDS: METOPROLOL SUCCINATE 25 MG TAB XL PO SCH (09:18)
[2018-01-05 12:05] VITALS: BP 102/58
--- NOTE | 2018-01-05 12:40 | Progress Note ---
DATE: January 05, 2018 CARDIOLOGY PROGRESS NOTE SUBJECTIVE: Patient denies chest pain or shortness of breath. He is confused. OBJECTIVE VITAL SIGNS: Temperature 98.3 degrees, pulse 82, respiratory rate 18, blood pressure 126/58, oxygen saturation 98% on room air. GENERAL: Awake and alert, no acute distress. LUNGS: Clear to auscultation bilaterally. No wheezes or crackles. CARDIOVASCULAR: Normal rate, regular rhythm. No murmur. Normal S1 and S2. ABDOMEN: Soft, nontender. EXTREMITIES: No edema. CARDIAC MEDICATIONS 1. Ranolazine 500 mg p.o. b.i.d. 2. Metoprolol succinate 25 mg p.o. daily. 3. Lisinopril 20 mg p.o. daily. 4. Plavix 75 mg p.o. daily. 5. Aspirin 325 mg p.o. daily. 6. Simvastatin 40 mg p.o. nightly. LABS: Sodium 141, potassium 3.7, chloride 108, CO2 27, BUN 21, creatinine 1.38. TELEMETRY: Normal sinus rhythm. IMPRESSION 1. Acute renal failure, improving. 2. Hyperkalemia, resolved. 3. Fever, improved. 4. Coronary artery disease, status post 3-vessel coronary artery bypass graft. 5. Hypertension. 6. Hyperlipidemia. 7. Suspected urinary tract infection. RECOMMENDATIONS: Continue current cardiac medications. Antibiotics per primary service. Cultures have been negative thus far. Monitor patient on telemetry while admitted. No further cardiac evaluation is indicated at this time. Thank you for this consult. We will continue to follow. Job#: [id number] EV
[2018-01-05 16:44] VITALS: BP 135/62
[2018-01-05 20:00] VITALS: BP 106/54
[2018-01-05] MEDS: MIRTAZAPINE 15 MG TAB PO SCH (20:58)
[2018-01-05] MEDS: SIMVASTATIN 40 MG TAB PO SCH (20:58)
[2018-01-05] MEDS: MONTELUKAST SODIUM 10 MG TAB PO SCH (20:58)
[2018-01-05] MEDS: ACETAMINOPHEN 325 MG TAB PO PRN (20:59)
[2018-01-06] VITALS (9 sets, daily range): BP systolic 86–121; BP diastolic 51–65
[2018-01-06] MEDS ORDERED: ACETAMINOPHEN 1000 MG/100 ML IV STA (05:18)
--- NOTE | 2018-01-06 06:08 | Diagnostic Imaging Report ---
CHEST SINGLE (PORTABLE), 01/06/2018 5:18 AM Technique: CHEST SINGLE (PORTABLE) Comparison: 01/04/2018 Clinical history: Crackles, possible aspiration Findings: See Impression Impression: 1. Stable cardiomediastinal silhouette poststernotomy. 2. Low lung volumes with right greater than left bibasilar opacity which may be due to atelectasis/vascular crowding or aspiration. Signed by: Dr Libby Weaver MD on 01/06/2018 6:05 AM
[2018-01-06 07:42] LABS: BASOPHILS % 0.1 % (0.0-1.0); HEMATOCRIT 23.7 % (38.2-49.6); HEMOGLOBIN 7.8 g/dL (14.0-18.0); LYMPHOCYTES # (AUTO) 1.2 (1.0-3.2); LYMPHOCYTES % 13.4 % (18.0-39.1); MEAN CORPUSCULAR HEMOGLOBIN 30.5 pg (28-32); MEAN CORPUSCULAR HGB CONC 32.9 g/dL (31-35); MEAN CORPUSCULAR VOLUME 92.6 fL (81-99); MONOCYTES # (AUTO) 0.6 (0.2-0.8); MONOCYTES % 7.2 % (4.4-11.3); NEUTROPHILS % 78.9 % (38.7-80.0); PLATELET COUNT 185 x10e3/uL (140-360); RED BLOOD COUNT 2.56 x10e6/uL (4.3-5.7)
[2018-01-06 08:02] LABS: ANION GAP 9.1 mmol/L (8-16); CREATININE, SERUM 1.71 mg/dL (0.72-1.25); MAGNESIUM 1.2 MG/DL (1.3-2.1); PHOSPHORUS 2.9 MG/DL (2.3-4.7); POTASSIUM 3.1 mmol/L (3.5-5.1)
[2018-01-06] MEDS ORDERED: SODIUM CHLORIDE 0.9% 1000ML 1,000 ML ONE (08:39)
[2018-01-06] MEDS: MEMANTINE PO SCH (09:00)
[2018-01-06] MEDS: METOPROLOL SUCCINATE 25 MG TAB XL PO SCH (09:00)
[2018-01-06] MEDS: DONEPEZIL PO SCH (09:00)
[2018-01-06] MEDS: CLOPIDOGREL BISULFATE 75 MG TAB PO SCH (09:00)
[2018-01-06] MEDS ORDERED: POTASSIUM CHLORIDE 20MEQ/15ML UDC PO ONE (09:30)
[2018-01-06] MEDS: SODIUM CHLORIDE 0.9% 1000ML 1,000 ML IV SCH ×2 (09:34→14:16)
[2018-01-06] MEDS: SOD CHL 0.45%/POT CHL 20MEQ 1,000 ML IV SCH ×2 (10:01→21:49)
[2018-01-06] MEDS: ASPIRIN 325 MG TAB PO SCH (10:03)
[2018-01-06] MEDS: MEMANTINE 10 MG TAB PO SCH (10:03)
[2018-01-06] MEDS: CEFUROXIME AXETIL 250 MG TAB PO SCH (10:03)
[2018-01-06] MEDS: RANOLAZINE 500 MG TABSR PO SCH ×2 (10:03→16:30)
[2018-01-06] MEDS: DOCUSATE SODIUM 100 MG CAP PO SCH ×2 (10:03→16:30)
[2018-01-06] MEDS: SERTRALINE HCL 50 MG TAB PO SCH (10:04)
[2018-01-06] MEDS ORDERED: MAGNESIUM SULFATE 2GM/50ML 50 ML IV ONE (14:30)
--- NOTE | 2018-01-06 15:35 | Progress Note ---
DATE: January 06, 2018 CARDIOLOGY PROGRESS NOTE SUBJECTIVE: No complaints today. OBJECTIVE VITAL SIGNS: Temperature 96.6, heart rate 75, respiratory rate 20, blood pressure 96/60, O2 sat 93% on room air. GENERAL: In no acute distress. NECK: No JVD. CHEST: Clear to auscultation bilaterally. CARDIOVASCULAR: Regular rate and rhythm. Normal S1 and S2. ABDOMEN: Soft. EXTREMITIES: No edema. CARDIOVASCULAR MEDICATIONS 1. Ranolazine 500 mg p.o. b.i.d. 2. Metoprolol succinate 25 mg p.o. daily. 3. Plavix 75 mg p.o. daily. 4. Aspirin 325 mg p.o. daily. 5. Simvastatin 40 mg p.o. nightly. STUDIES: White blood cell count 8.9, hemoglobin 10.8, platelet count 185,000. Sodium 139, potassium 3.1, chloride 108, bicarbonate 25, BUN 29, creatinine 1.7. Glucose 91. Blood sugar 92. Magnesium 1.2. Phosphorous 2.9. Calcium 8. Blood cultures negative x48 hours. IMAGING: Chest x-ray with stable, paramediastinal silhouette post sternotomy, low lung volumes, on left, vascular opacity, which may be due to atelectasis, vascular crowding or aspiration. TELEMETRY: Sinus rhythm with and sinus bradycardia. ASSESSMENT 1. Acute kidney injury. 2. Hyperkalemia, status post. 3. Status post fever. 4. Coronary artery disease, status post 3-vessel bypass. 5. Hypertension. 6. Dyslipidemia. 7. Suspect urinary tract infection. RECOMMENDATIONS: 1. Antibiotics per the primary service. 2. Continue to monitor cultures. 3. Keep on telemetry. 4. Continue rest of cardiovascular medications. 5. Echocardiogram with LV systolic pressure of 55% to 60%, impaired LV relaxation. Job#: [id number]
[2018-01-06] MEDS: CEFEPIME HCL 1 GM VIAL IV SCH (16:30)
[2018-01-06 16:36] LABS: ALBUMIN 2.9 g/dL (3.5-5.0); BILIRUBIN,DIRECT 0.3 mg/dL (0.0-0.5)
--- NOTE | 2018-01-06 17:41 | Diagnostic Imaging Report ---
EXAM: CT Abdomen and Pelvis WITHOUT contrast INDICATION: \S\R/O INFECTION COMPARISON: None. TECHNIQUE: Abdomen and pelvis were scanned utilizing a multidetector helical scanner from the lung base to the pubic symphysis without administration of IV contrast. Absence of intravenous contrast decreases sensitivity for detection of focal lesions and vascular pathology. Coronal and sagittal reformations were obtained. Routine protocol was performed. IV CONTRAST: None ORAL CONTRAST: Water COMPLICATIONS: None RADIATION DOSE: Total DLP: 459.2 mGy*cm Estimated effective dose: (DLP x 0.015 x size factor) mSv CTDIvol has been reviewed. It is below the limits set by the Radiation Protocol Committee (RPC). FINDINGS: LINES and TUBES: Ramirez catheter within the urinary bladder. LOWER THORAX: Lower lobe dependent atelectasis. Median sternotomy wires. Focal pericardial calcifications may be related to sternotomy or prior pericarditis. Aortic annular and coronary artery calcifications. HEPATOBILIARY: No focal hepatic lesions. No biliary ductal dilation. GALLBLADDER: No radio-opaque stones or sludge. No wall thickening. SPLEEN: No splenomegaly. PANCREAS: No focal masses or ductal dilatation. ADRENALS: No adrenal nodules KIDNEYS/URETERS: No hydronephrosis. No cystic or solid mass lesions. No stones. GI TRACT: No abnormal distention, wall thickening, or evidence of bowel obstruction. Appendix is normal. PELVIC ORGANS/BLADDER: Ramirez catheter within the urinary bladder with associated focus of air. LYMPH NODES: No lymphadenopathy. VESSELS: There is moderate atherosclerotic disease in the aorta and major arterial branches. PERITONEUM / RETROPERITONEUM: No free air or fluid. BONES: There are degenerative changes in the lumbar spine, worse at L5-S1. SOFT TISSUES: Unremarkable. IMPRESSION: No acute abnormalities in the abdomen and pelvis. Signed by: DR. Macario Heaton MD on 01/06/2018 5:38 PM
[2018-01-06 18:43] LABS: CALCIUM 8.1 mg/dL (8.4-10.2); CREATININE, SERUM 1.58 mg/dL (0.72-1.25); MAGNESIUM 1.9 MG/DL (1.3-2.1)
--- NOTE | 2018-01-06 20:04 | Consultation ---
DATE OF CONSULTATION: January 06, 2018 REASON FOR CONSULTATION: Fever, concern about aspiration pneumonia. HISTORY OF PRESENT ILLNESS: This patient who is a 77-year-old male, who comes on January 03 with sensation not feeling well. The patient is known to have history of chronic kidney disease stage 2, creatinine around 1.1. He was recently in the hospital with pneumonia, history of coronary artery disease, history of CABG times 3. Recent left heart catheterizations in May 2017, by Dr. Luciano. Patient comes in on January 03 with sensation not feeling well. He was found to have acute renal failure, so he was admitted. He was seen by renal, seen by cardiology. Yesterday, he spiked fever, he became more lethargic. There is concern if he aspirated, so infectious disease was consulted. There is no family at the bedside. The patient is sleepy at the present time. FAMILY HISTORY: Patient was seen and examined. Chart reviewed. As mentioned above, he was in acute renal failure. PAST MEDICAL HISTORY: Coronary artery disease, status post CABG, carotid artery disease, hypertension, hyperlipidemia, chronic kidney disease. PAST SURGICAL HISTORY: Three-vessel CABG. ALLERGIES: NKA. SOCIAL HISTORY: There is no smoking, drug abuse. FAMILY HISTORY: Hypertension. REVIEW OF SYSTEMS: At the present time could not be obtained, although I can get it from what described above and by the nurse. MEDICATION: He is on metoprolol, Plavix, aspirin, simvastatin. He is currently on magnesium sulfate, potassium supplement, Zoloft. He was on Ceftin p.o. b.i.d., Namenda, Colace, aspirin, Tylenol, Remeron, Zocor. LABORATORY DATA: Reviewed. Blood cultures are still pending. His white count 8.97, hemoglobin 7.8, hematocrit 23. Sodium 139, potassium 3.1, his creatinine is 1.71. His chest x-ray shows cardiomegaly, low lung volume, that was January 06. PHYSICAL EXAMINATION GENERAL: He is currently lethargic. VITALS: Stable. Temperature 97.6, his T max 102.5, he has been running some fever since January 03. Currently afebrile, but he had fever earlier. HEENT: Normocephalic. Not icteric. NECK: Supple. CHEST: Few rhonchi bilateral. COR: S1, S2. No S3, S4, murmur. ABDOMEN: Soft. Bowel sounds positive. No tenderness. EXTREMITIES: No edema. IMPRESSIONS 1. Fever, altered mental status. Concern about sepsis, source is unclear to me at present time. Agree with blood cultures. Agree with urine cultures. Check amylase, lipase. Check liver enzymes. Will put him on cefepime and Flagyl for now. 2. Anemia. 3. Acute tubular necrosis on chronic kidney disease. 4. Coronary artery disease. 5. Will follow with you. Job#: [id number] CQ
[2018-01-06] MEDS: MONTELUKAST SODIUM 10 MG TAB PO SCH (21:00)
[2018-01-06] MEDS: MIRTAZAPINE 15 MG TAB PO SCH (21:00)
[2018-01-06] MEDS: SIMVASTATIN 40 MG TAB PO SCH (21:00)
[2018-01-06] MEDS: METRONIDAZOLE 500MG/NS 100ML 100 ML IV SCH (21:50)
[2018-01-07] VITALS (9 sets, daily range): BP systolic 92–184; BP diastolic 50–76
[2018-01-07] MEDS: SOD CHL 0.45%/POT CHL 20MEQ 1,000 ML IV SCH ×2 (04:30→14:30)
[2018-01-07] MEDS: CEFEPIME HCL 1 GM VIAL IV SCH ×2 (05:23→17:24)
[2018-01-07] MEDS: METRONIDAZOLE 500MG/NS 100ML 100 ML IV SCH ×3 (05:57→23:27)
[2018-01-07 08:07] LABS: BASOPHILS % 0.3 % (0.0-1.0); EOSINOPHILS # (AUTO) 0.2 (0.0-0.4); EOSINOPHILS % 2.1 % (0.0-6.0); HEMATOCRIT 25.5 % (38.2-49.6); HEMOGLOBIN 8.1 g/dL (14.0-18.0); LYMPHOCYTES # (AUTO) 1.6 (1.0-3.2); LYMPHOCYTES % 20.9 % (18.0-39.1); MEAN CORPUSCULAR HEMOGLOBIN 30.1 pg (28-32); MEAN CORPUSCULAR HGB CONC 31.8 g/dL (31-35); MEAN CORPUSCULAR VOLUME 94.8 fL (81-99); MONOCYTES # (AUTO) 0.6 (0.2-0.8); MONOCYTES % 7.8 % (4.4-11.3); NEUTROPHILS # (AUTO) 5.1 (2.1-6.9); NEUTROPHILS % 68.5 % (38.7-80.0); PLATELET COUNT 187 x10e3/uL (140-360); RED BLOOD COUNT 2.69 x10e6/uL (4.3-5.7); RED CELL DISTRIBUTION WIDTH 14.2 % (11.7-14.4)
[2018-01-07 08:29] LABS: BLOOD UREA NITROGEN 25 mg/dL (7-26); BUN/CREATININE RATIO 22 (6-25); CALCIUM 8.2 mg/dL (8.4-10.2); CARBON DIOXIDE 23 mmol/L (22-29); CHLORIDE 109 mmol/L (98-107); CREATININE, SERUM 1.14 mg/dL (0.72-1.25); EST GLOMERULAR FILTRATION RATE > 60 ML/MIN (60-); GLUCOSE 71 mg/dL (74-118); SODIUM 138 mmol/L (136-145)
[2018-01-07] MEDS: METOPROLOL SUCCINATE 25 MG TAB XL PO SCH (08:50)
[2018-01-07] MEDS: RANOLAZINE 500 MG TABSR PO SCH ×2 (08:50→17:25)
[2018-01-07] MEDS: DONEPEZIL PO SCH (08:50)
[2018-01-07] MEDS: PANTOPRAZOLE SOD 40 MG TABEC PO SCH (08:50)
[2018-01-07] MEDS: MEMANTINE 10 MG TAB PO SCH (08:50)
[2018-01-07] MEDS: DOCUSATE SODIUM 100 MG CAP PO SCH ×2 (08:50→17:25)
[2018-01-07] MEDS: MEMANTINE PO SCH (08:50)
[2018-01-07] MEDS: SERTRALINE HCL 50 MG TAB PO SCH (08:51)
--- NOTE | 2018-01-07 14:12 | Progress Note ---
DATE: January 07, 2018 INTERNAL MEDICINE PROGRESS NOTE SUBJECTIVE: He is doing well. No significant complaints. PHYSICAL EXAM: VITAL SIGNS: Blood pressure 112/53. Temperature is 97.2, heart rate 84 per minute. Respiratory rate 16 per minute. Oxygen saturation 94%. HEART: Regular rhythm. No murmur and no extra sounds. LUNGS: Clear bilaterally. ABDOMEN: Soft. EXTREMITIES: Show no evidence of cyanosis, edema or trauma. BLOOD WORK: We have BMP with a sodium 138, potassium 4.0, chloride 109, CO2 23, BUN 25, creatinine 1.44. Glucose 71. CBC: White blood count 7.46, hemoglobin 8.1, hematocrit 32.5, platelet count 187,000. PT 14.3, INR 1.20, PTT 34.8. AST 19, ALT 13, total bilirubin 0.5, alkaline phos 43. FINAL IMPRESSION: 1. Acute on chronic renal failure which is resolving. 2. Anemia of chronic disease secondary to chronic renal failure. 3. Coronary artery disease status post coronary artery bypass graft. 4. Hypertension with hypertensive nephropathy. 5. Hyperlipidemia. 6. Guaiac positive stools. PLAN OF TREATMENT: Continue with current medication regimen. He is on Zofran 4 mg IV q.4 h. as needed. push as needed. Namenda 20 mg daily. Zocor 40 mg daily. Tylenol as needed. Aspirin 325 mg daily. Metoprolol 25 mg daily. Zoloft 25 mg daily. Potassium chloride, he has received 1 dose now because of hypokalemia. Simethicone 80 mg q.6 h. as needed. Plavix 75 mg daily. Singulair 10 mg daily. Remeron 30 mg at bedtime. Cefepime 1 g IV twice a day. Tylenol 350 mg q.4 h. as needed. Colace 100 mg twice a day. Ranexa 500 mg twice a day. Protonix 40 mg daily. Job#: [id number]
--- NOTE | 2018-01-07 14:42 | Progress Note ---
DATE: January 07, 2018 CARDIOLOGY PROGRESS NOTE SUBJECTIVE: No complaints. OBJECTIVE VITAL SIGNS: Temperature 97.2, heart rate 113, blood pressure 92/63, O2 sat 100% on room air, respiratory rate 20. GENERAL: No acute distress. NECK: No JVD. CHEST: Clear to auscultation. CARDIOVASCULAR: Regular rate and rhythm, normal S1 and S2. ABDOMEN: Soft. EXTREMITIES: No edema. CARDIOVASCULAR MEDICATIONS: Ranolazine 500 mg b.i.d., metoprolol succinate 25 mg daily, Plavix 75 mg daily, aspirin 325 mg daily and simvastatin 40 mg nightly. STUDIES: White blood cells 7.4, hemoglobin 8.1, platelets 187,000. Sodium 138, potassium 4, chloride 109, bicarbonate 23, BUN 25, creatinine 1.1. Glucose 71. Calcium 8.2. ASSESSMENT: 1. Encephalopathy. 2. Acute kidney injury. 3. Status post hyperkalemia. 4. Status post fever. 5. Coronary artery disease with history of 3 vessel bypass. 6. Hypertension and dyslipidemia. 7. Suspected urinary tract infection. 8. Positive fecal occult blood and anemia. 9. Preserved left ventricular systolic function with LVEF 55% to 60% and impaired LV relaxation on echocardiogram. PLAN: Continue antibiotics per primary service. Liberalize blood pressure control. Monitor renal function. Keep on telemetry. Anemia. FOBT positive, workup advised. Job#: [id number]
[2018-01-07] MEDS: MIRTAZAPINE 15 MG TAB PO SCH (21:40)
[2018-01-07] MEDS: MONTELUKAST SODIUM 10 MG TAB PO SCH (21:40)
[2018-01-07] MEDS: SIMVASTATIN 40 MG TAB PO SCH (21:40)
[2018-01-08 00:20] VITALS: BP 177/67
--- NOTE | 2018-01-08 01:18 | Progress Note ---
DATE: Mr. Torres seems to be more alert today. There is no new complaint. REVIEW OF SYSTEMS: Negative. PHYSICAL EXAMINATION GENERAL: He is alert, is comfortable, does not seem to be in acute distress. VITAL SIGNS: Stable, afebrile. HEENT: Normocephalic, not icteric. NECK: Supple. CHEST: Clear. COR: S1, S2. No murmur. ABDOMEN: Soft. Bowel sounds present. No tenderness, no hepatosplenomegaly. EXTREMITIES: No edema. SKIN: No rash. LABORATORY DATA: Reviewed. CAT scan of the abdomen and pelvis was negative. Blood cultures no growth in 3 days. Urine culture is pending, so far no growth. White count is 7.46, hemoglobin 8.1. His sodium 138, potassium 4.0, creatinine 1.14. EXAMINATION GENERAL: He is alert, comfortable, currently . VITAL SIGNS: Stable, there is no fever. T-max has been 102. MEDICATIONS: Currently on cefepime, metronidazole. CHEST X-RAY: Stable. IMPRESSIONS 1. Sepsis on admission, source is unclear. Fever, continue with current choice of antibiotic. He seems to be better. Will follow up with you. 2. Acute tubular necrosis. 3. Coronary artery disease. 4. 5. Will follow. Job#: [id number]
[2018-01-08 04:10] VITALS: BP 142/65
[2018-01-08] MEDS: CEFEPIME HCL 1 GM VIAL IV SCH ×2 (04:48→17:59)
[2018-01-08] MEDS: METRONIDAZOLE 500MG/NS 100ML 100 ML IV SCH ×3 (06:07→21:53)
[2018-01-08] MEDS ORDERED: BISACODYL 10 MG SUPP PR ONE (07:30)
[2018-01-08] MEDS: DONEPEZIL PO SCH (09:00)
[2018-01-08] MEDS: MEMANTINE PO SCH (09:00)
[2018-01-08] MEDS: ASPIRIN 325 MG TAB PO SCH (09:00)
[2018-01-08 09:16] VITALS: BP 133/84
--- NOTE | 2018-01-08 09:38 | Diagnostic Imaging Report ---
PROCEDURE:ABDOMEN COMP INCL UPR OR DECUB TECHNIQUE:Upright and supine AP views abdomen INDICATION:Abdominal distention COMPARISON:[facility], CT, CT ABDOMEN/PELVIS WO, 01/06/2018, 16:57. FINDINGS: Gas-filled large and small bowel loops without evidence of wall thickening, pneumatosis or pneumoperitoneum. Grossly normal stool volume. No evidence of organomegaly or ascites. No irregular calcifications. Intact skeleton. CONCLUSION: Gas-filled large and small bowel without evidence of obstruction or other acute abnormality. Dictated by: Piter Mas M.D. on 01/08/2018 at 9:38 Electronically approved by: Piter Mas M.D. on 01/08/2018 at 9:38
[2018-01-08] MEDS: PANTOPRAZOLE SOD 40 MG TABEC PO SCH (10:16)
[2018-01-08] MEDS: DOCUSATE SODIUM 100 MG CAP PO SCH ×2 (10:19→17:59)
[2018-01-08] MEDS: MEMANTINE 10 MG TAB PO SCH (10:19)
[2018-01-08] MEDS: METOPROLOL SUCCINATE 25 MG TAB XL PO SCH (10:20)
[2018-01-08] MEDS: SERTRALINE HCL 50 MG TAB PO SCH (10:20)
[2018-01-08] MEDS: RANOLAZINE 500 MG TABSR PO SCH ×2 (10:20→18:17)
[2018-01-08] MEDS ORDERED: EPOETIN ALFA 10000 UNIT/ML VIAL SC SCH (12:00)
[2018-01-08] MEDS ORDERED: EPOETIN ALFA 10000 UNIT/ML VIAL SC NR (12:00)
--- NOTE | 2018-01-08 12:35 | Progress Note ---
DATE: January 08, 2018 CARDIOLOGY PROGRESS NOTE SUBJECTIVE: Patient denies chest pain or shortness of breath. OBJECTIVE: VITAL SIGNS: Temperature 97.9 degrees, pulse 75, respiratory rate 20, blood pressure 133/84, oxygen saturation 96% on room air. GENERAL: Awake and alert, no acute distress. LUNGS: Clear to auscultation bilaterally. No wheezes or crackles. CARDIOVASCULAR: Normal rate, regular rhythm. No murmur. Normal S1 and S2. ABDOMEN: Soft, nontender. EXTREMITIES: No edema. CARDIAC MEDICATIONS 1. Metoprolol succinate 12.5 mg p.o. daily. 2. Ranolazine 500 mg p.o. b.i.d. 3. Simvastatin 40 mg p.o. q.h.s. 4. Aspirin 325 mg p.o. daily. LABS: None today. TELEMETRY: Normal sinus rhythm. IMPRESSION 1. Acute renal failure, improving. 2. Hypokalemia, resolved. 3. Status post fever. 4. Coronary artery disease, status post 3-vessel coronary artery bypass graft. 5. Hypertension. 6. Hyperlipidemia. 7. Suspected urinary tract infection. 8. Positive stool occult blood. 9. Anemia. 10. Preserved left ventricular systolic function with left ventricular ejection fraction of 55-60%, impaired left ventricular relaxation on echocardiogram. RECOMMENDATIONS: Antibiotics per infectious disease. Continue patient on telemetry. Evaluation of anemia and positive stool occult blood per primary service. Continue current cardiac medications. Renal function is improving. No further cardiac evaluation is indicated at this time. Thank you for this consult. We will continue to follow. Job#: [id number] VAS
[2018-01-08] MEDS: SODIUM FERRIC GLUCONATE COMPLX 125 MG in SODIUM CHLORIDE 0.9% 100 ML 100 ML IV SCH (15:01)
[2018-01-08 16:00] VITALS: BP 167/76
[2018-01-08 16:56] VITALS: BP 167/76
[2018-01-08 20:00] VITALS: BP 144/65
[2018-01-08] MEDS ORDERED: EPOETIN ALFA 10000 UNIT/ML VIAL SC ONE (20:20)
[2018-01-08] MEDS: MIRTAZAPINE 15 MG TAB PO SCH (21:15)
[2018-01-08] MEDS: SIMVASTATIN 40 MG TAB PO SCH (21:15)
[2018-01-08] MEDS: MONTELUKAST SODIUM 10 MG TAB PO SCH (21:15)
[2018-01-09] VITALS: BP 168/69
[2018-01-09 04:00] VITALS: BP 156/72
[2018-01-09] MEDS: CEFEPIME HCL 1 GM VIAL IV SCH ×2 (04:43→16:03)
[2018-01-09] MEDS: METRONIDAZOLE 500MG/NS 100ML 100 ML IV SCH ×3 (05:57→21:45)
[2018-01-09 07:24] LABS: BASOPHILS % 0.3 % (0.0-1.0); EOSINOPHILS # (AUTO) 0.1 (0.0-0.4); EOSINOPHILS % 1.8 % (0.0-6.0); HEMATOCRIT 23.9 % (38.2-49.6); HEMOGLOBIN 7.8 g/dL (14.0-18.0); LYMPHOCYTES # (AUTO) 1.3 (1.0-3.2); LYMPHOCYTES % 19.6 % (18.0-39.1); MEAN CORPUSCULAR HEMOGLOBIN 30.1 pg (28-32); MEAN CORPUSCULAR HGB CONC 32.6 g/dL (31-35); MEAN CORPUSCULAR VOLUME 92.3 fL (81-99); MONOCYTES # (AUTO) 0.7 (0.2-0.8); MONOCYTES % 10.9 % (4.4-11.3); NEUTROPHILS # (AUTO) 4.5 (2.1-6.9); NEUTROPHILS % 66.5 % (38.7-80.0); PLATELET COUNT 231 x10e3/uL (140-360); RED BLOOD COUNT 2.59 x10e6/uL (4.3-5.7); RED CELL DISTRIBUTION WIDTH 13.9 % (11.7-14.4)
[2018-01-09 07:46] LABS: ANION GAP 8.8 mmol/L (8-16); BLOOD UREA NITROGEN 18 mg/dL (7-26); BUN/CREATININE RATIO 17 (6-25); CALCIUM 8.5 mg/dL (8.4-10.2); CARBON DIOXIDE 25 mmol/L (22-29); CHLORIDE 110 mmol/L (98-107); CREATININE, SERUM 1.03 mg/dL (0.72-1.25); EST GLOMERULAR FILTRATION RATE > 60 ML/MIN (60-); GLUCOSE 83 mg/dL (74-118); MAGNESIUM 1.5 MG/DL (1.3-2.1); POTASSIUM 3.8 mmol/L (3.5-5.1); SODIUM 140 mmol/L (136-145)
[2018-01-09 08:00] VITALS: BP 198/71
[2018-01-09] MEDS: MEMANTINE PO SCH (08:36)
[2018-01-09] MEDS: PANTOPRAZOLE SOD 40 MG TABEC PO SCH (08:36)
[2018-01-09] MEDS: DONEPEZIL PO SCH (08:36)
[2018-01-09] MEDS: ASPIRIN 325 MG TAB PO SCH (08:36)
[2018-01-09] MEDS: SERTRALINE HCL 50 MG TAB PO SCH (08:37)
[2018-01-09] MEDS: MEMANTINE 10 MG TAB PO SCH (08:37)
[2018-01-09] MEDS: RANOLAZINE 500 MG TABSR PO SCH ×2 (08:37→15:59)
[2018-01-09] MEDS: DOCUSATE SODIUM 100 MG CAP PO SCH (08:37)
[2018-01-09] MEDS: ACETAMINOPHEN 325 MG TAB PO PRN (08:43)
[2018-01-09] MEDS: METOPROLOL SUCCINATE 25 MG TAB XL PO SCH (08:43)
[2018-01-09] MEDS ORDERED: ACETAMINOPHEN 325 MG/10 ML UDC PO PRN (12:00)
[2018-01-09] MEDS ORDERED: ACETAMINOPHEN 325 MG/10 ML UDC NG PRN (12:00)
[2018-01-09] MEDS ORDERED: SODIUM CHLORIDE 0.9% 250ML 250 ML ONE ×2 (12:31→23:09)
[2018-01-09] MEDS ORDERED: FUROSEMIDE INJ 10 MG/ML 2 ML VIAL IV ONE ×2 (15:00→20:00)
[2018-01-09] MEDS: DOCUSATE SODIUM LIQD 100 MG/10 ML UDC NG SCH (15:59)
[2018-01-09 16:00] VITALS: BP 175/80
[2018-01-09] MEDS: SODIUM FERRIC GLUCONATE COMPLX 125 MG in SODIUM CHLORIDE 0.9% 100 ML 100 ML IV SCH (16:03)
[2018-01-09 16:58] VITALS: BP 175/80
--- NOTE | 2018-01-09 19:39 | Progress Note ---
DATE: January 09, 2018 CARDIOLOGY PROGRESS NOTE SUBJECTIVE: The patient is sleeping with CPAP. However, she does respond and denying chest pain. OBJECTIVE VITAL SIGNS: Temperature 99.2 degrees, pulse 61, respiratory rate 16, blood pressure 198/71, oxygen saturation 97%. GENERAL: Sleeping in no acute distress. LUNGS: Clear to auscultation bilaterally. No wheezes or crackles. CARDIOVASCULAR: Normal rate, regular rhythm. No murmur. Normal S1 and S2. ABDOMEN: Soft, nontender. EXTREMITIES: No edema. CARDIAC MEDICATIONS 1. Metoprolol succinate 25 mg p.o. daily. 2. Ranolazine 500 mg p.o. b.i.d. 3. Simvastatin 40 mg p.o. q.h.s. 4. Aspirin 325 mg p.o. daily. LABS: WBC 6.8, hemoglobin 7.8, hematocrit 23.9, platelets 231,000, sodium 140, potassium 3.8, chloride 110, CO2 of 25, BUN 18, creatinine 1.03. TELEMETRY: Normal sinus rhythm. IMPRESSION 1. Acute renal failure, improving. 2. Hypokalemia, resolved. 3. Anemia with positive stool occult blood. 4. Coronary artery disease, status post 3-vessel coronary artery bypass graft. 5. Hypertension. 6. Hyperlipidemia. 7. Suspected urinary tract infection. 8. Preserved left ventricular systolic function with left ventricular ejection fraction of 55%-60%, impaired left ventricular relaxation on echocardiogram. 9. Status post fever. RECOMMENDATIONS: Antibiotics per infectious disease. Continue the patient on telemetry. Evaluation of anemia and positive stool occult blood per primary. GI has been consulted. Continue current cardiac medications. Recommend resuming aspirin and Plavix after GI evaluation is complete. No further cardiac evaluation is indicated at this time. Thank you for this consult. We will continue to follow. Job#: [id number]
[2018-01-09 21:45] VITALS: BP 141/63
[2018-01-10] VITALS: BP 141/63
[2018-01-10 00:30] VITALS: BP 123/69
[2018-01-10] MEDS: MIRTAZAPINE 15 MG TAB PO SCH ×2 (01:32→22:21)
[2018-01-10] MEDS: MONTELUKAST SODIUM 10 MG TAB PO SCH ×2 (01:32→22:21)
[2018-01-10] MEDS: SIMVASTATIN 40 MG TAB PO SCH ×2 (01:32→22:21)
[2018-01-10] MEDS ORDERED: FUROSEMIDE INJ 10 MG/ML 2 ML VIAL IV ONE (02:15)
[2018-01-10 04:00] VITALS: BP 130/61
[2018-01-10] MEDS: CEFEPIME HCL 1 GM VIAL IV SCH ×2 (06:20→18:02)
[2018-01-10] MEDS: METRONIDAZOLE 500MG/NS 100ML 100 ML IV SCH ×3 (06:20→22:21)
[2018-01-10 06:54] LABS: BASOPHILS % 0.5 % (0.0-1.0); EOSINOPHILS # (AUTO) 0.2 (0.0-0.4); EOSINOPHILS % 2.4 % (0.0-6.0); HEMATOCRIT 31.5 % (38.2-49.6); HEMOGLOBIN 10.6 g/dL (14.0-18.0); LYMPHOCYTES # (AUTO) 1.6 (1.0-3.2); MEAN CORPUSCULAR HEMOGLOBIN 30.1 pg (28-32); MEAN CORPUSCULAR HGB CONC 33.7 g/dL (31-35); MEAN CORPUSCULAR VOLUME 89.5 fL (81-99); MONOCYTES # (AUTO) 0.8 (0.2-0.8); MONOCYTES % 10.4 % (4.4-11.3); NEUTROPHILS # (AUTO) 5.2 (2.1-6.9); NEUTROPHILS % 65.1 % (38.7-80.0); PLATELET COUNT 239 x10e3/uL (140-360); RED BLOOD COUNT 3.52 x10e6/uL (4.3-5.7)
[2018-01-10 07:15] LABS: ANION GAP 10.9 mmol/L (8-16); CALCIUM 8.8 mg/dL (8.4-10.2); CREATININE, SERUM 1.3 mg/dL (0.72-1.25); MAGNESIUM 1.5 MG/DL (1.3-2.1); POTASSIUM 3.9 mmol/L (3.5-5.1)
[2018-01-10] MEDS: PANTOPRAZOLE SODIUM 40 MG SUSPDR.PKT PO SCH (08:00)
[2018-01-10] MEDS: DONEPEZIL PO SCH (09:00)
[2018-01-10] MEDS: MEMANTINE PO SCH (09:00)
[2018-01-10 09:20] VITALS: BP 126/69
[2018-01-10] MEDS: ASPIRIN 325 MG TAB PO SCH (09:46)
[2018-01-10] MEDS: MEMANTINE 10 MG TAB PO SCH (09:46)
[2018-01-10] MEDS: RANOLAZINE 500 MG TABSR PO SCH ×2 (09:46→18:03)
[2018-01-10] MEDS: METOPROLOL SUCCINATE 25 MG TAB XL PO SCH (09:46)
[2018-01-10] MEDS: SERTRALINE HCL 50 MG TAB PO SCH (09:46)
[2018-01-10] MEDS: DOCUSATE SODIUM LIQD 100 MG/10 ML UDC NG SCH ×2 (09:46→18:02)
[2018-01-10] MEDS ORDERED: SODIUM CHLORIDE 0.9% 1000ML 1,000 ML IV ONE (13:30)
[2018-01-10 13:32] VITALS: BP 114/60
[2018-01-10] MEDS: SODIUM FERRIC GLUCONATE COMPLX 125 MG in SODIUM CHLORIDE 0.9% 100 ML 100 ML IV SCH (14:00)
--- NOTE | 2018-01-10 18:57 | Progress Note ---
DATE: January 10, 2018 CARDIOLOGY PROGRESS NOTE SUBJECTIVE: The patient is awake, but did not respond to questions. OBJECTIVE VITALS: Temperature 96.8 degrees, pulse 72, respiratory rate 18, blood pressure 114/60, oxygen saturation 96%. GENERAL: Awake, alert and in no acute distress. LUNGS: Clear to auscultation bilaterally. No wheezes or crackles. CARDIOVASCULAR: Normal rate. Regular rhythm. No murmur. Normal S1 and S2. ABDOMEN: Soft and nontender. EXTREMITIES: No edema. CARDIAC MEDICATIONS 1. Ranolazine 500 mg p.o. b.i.d. 2. Metoprolol succinate 25 mg p.o. daily. 3. Aspirin 325 mg p.o. daily. 4. Simvastatin 40 mg p.o. at bedtime. LABS: WBC 7.99, hemoglobin 10.6, hematocrit 31.5, and platelets 239,000. Sodium 140, potassium 3.9, chloride 106, CO2 27, BUN 24, creatinine 1.3. Telemetry is normal sinus rhythm. IMPRESSION 1. Acute renal failure, improved. 2. Hyperkalemia, resolved. 3. Anemia with positive stool occult blood. 4. Coronary artery disease: Status post 3-vessel coronary artery bypass graft. 5. Hypertension. 6. Hyperlipidemia. 7. Suspected urinary tract infection. 8. Preserved left ventricular systolic function with left ventricular ejection fraction of 50% to 55%, impaired left ventricular relaxation on echocardiogram. 9. Status post fever. RECOMMENDATIONS: Antibiotics per infectious disease. Continue the patient on telemetry. Evaluation of anemia and positive stool occult blood per GI. Continue current cardiac medications. Resume aspirin and Plavix after GI evaluation is complete. No further cardiac evaluation is indicated at this time. Thank you for this consult. We will continue to follow. Job#: [id number] ZANE POOLE
[2018-01-10 20:00] VITALS: BP 104/56
[2018-01-10] MEDS ORDERED: BISACODYL 5 MG TAB EC PO ONE (23:45)
[2018-01-11] VITALS: BP 116/56
[2018-01-11] MEDS ORDERED: BISACODYL 5 MG TAB EC PO ONE ×8 (00:15→11:15)
[2018-01-11 04:00] VITALS: BP 118/67
[2018-01-11] MEDS: CEFEPIME HCL 1 GM VIAL IV SCH ×2 (05:00→17:14)
[2018-01-11] MEDS: METRONIDAZOLE 500MG/NS 100ML 100 ML IV SCH ×2 (05:40→14:00)
[2018-01-11 06:57] LABS: BASOPHILS % 0.5 % (0.0-1.0); EOSINOPHILS # (AUTO) 0.2 (0.0-0.4); EOSINOPHILS % 2.1 % (0.0-6.0); HEMATOCRIT 35.1 % (38.2-49.6); HEMOGLOBIN 11.5 g/dL (14.0-18.0); LYMPHOCYTES # (AUTO) 1.4 (1.0-3.2); LYMPHOCYTES % 16.8 % (18.0-39.1); MEAN CORPUSCULAR HEMOGLOBIN 29.9 pg (28-32); MEAN CORPUSCULAR HGB CONC 32.8 g/dL (31-35); MEAN CORPUSCULAR VOLUME 91.4 fL (81-99); MONOCYTES # (AUTO) 0.9 (0.2-0.8); MONOCYTES % 10.4 % (4.4-11.3); NEUTROPHILS # (AUTO) 5.7 (2.1-6.9); NEUTROPHILS % 68.8 % (38.7-80.0); PLATELET COUNT 316 x10e3/uL (140-360); RED BLOOD COUNT 3.84 x10e6/uL (4.3-5.7); RED CELL DISTRIBUTION WIDTH 15.8 % (11.7-14.4)
[2018-01-11 07:15] LABS: ANION GAP 11.8 mmol/L (8-16); CALCIUM 9.2 mg/dL (8.4-10.2); CREATININE, SERUM 1.19 mg/dL (0.72-1.25); POTASSIUM 4.8 mmol/L (3.5-5.1)
[2018-01-11 07:53] VITALS: BP 119/56
[2018-01-11] MEDS: PANTOPRAZOLE SODIUM 40 MG SUSPDR.PKT PO SCH (08:00)
[2018-01-11] MEDS: MEMANTINE 10 MG TAB PO SCH (08:58)
[2018-01-11] MEDS: SERTRALINE HCL 50 MG TAB PO SCH (08:58)
[2018-01-11] MEDS: METOPROLOL SUCCINATE 25 MG TAB XL PO SCH (08:58)
[2018-01-11] MEDS: DOCUSATE SODIUM LIQD 100 MG/10 ML UDC NG SCH ×2 (08:58→17:14)
[2018-01-11] MEDS: ASPIRIN 325 MG TAB PO SCH (08:58)
[2018-01-11] MEDS: RANOLAZINE 500 MG TABSR PO SCH ×2 (08:58→17:14)
[2018-01-11] MEDS: DONEPEZIL PO SCH (09:00)
[2018-01-11] MEDS: MEMANTINE PO SCH (09:00)
--- NOTE | 2018-01-11 10:54 | Diagnostic Imaging Report ---
PROCEDURE: X-RAY CHEST, TWO VIEWS COMPARISON: 01/06/2018. INDICATIONS: PNEUMONIA FINDINGS: Lungs are relatively well-inflated and without focal consolidation, pleural effusion, or pneumothorax. Stable cardiomediastinal contour status poststernotomy with tortuosity of the thoracic aorta. No overt pulmonary edema. No acute osseous abnormality. The lateral radiographs are limited secondary to superimposition of multiple artifacts external to the patient. CONCLUSION: No consolidative pneumonia.. Dictated by: Jarrod Shrestha M.D. on 01/11/2018 at 10:55 Electronically approved by: Jarrod Shrestha M.D. on 01/11/2018 at 10:55
--- NOTE | 2018-01-11 12:33 | Progress Note ---
DATE: January 11, 2018 CARDIOLOGY PROGRESS NOTE SUBJECTIVE: Patient is awake. However, due to his baseline dementia, no history could be obtained. OBJECTIVE VITAL SIGNS: Temperature 96.5 degrees, pulse 63, respiratory rate 20, blood pressure 119/56, oxygen saturation 97% on room air. GENERAL: Awake, alert, in no acute distress. LUNGS: Clear to auscultation bilaterally. No wheezes or crackles. CARDIOVASCULAR: Normal rate, regular rhythm. No murmur. Normal S1 and S2. ABDOMEN: Soft, nontender. EXTREMITIES: No edema. CARDIAC MEDICATIONS 1. Metoprolol succinate 25 mg p.o. daily. 2. Ranolazine 500 mg p.o. b.i.d. 3. Aspirin 325 mg p.o. daily. 4. Simvastatin 40 mg p.o. nightly. LABS: WBC 8.29, hemoglobin 11.5, hematocrit 35.1, platelets 316. Sodium 141, potassium 4.8, chloride 109, CO2 25, BUN 26, creatinine 1.19. TELEMETRY: Normal sinus rhythm. IMPRESSION 1. Acute renal failure, improved. 2. Anemia with positive stool occult blood. 3. Coronary artery disease status post 3-vessel coronary artery bypass graft. 4. Hypertension. 5. Hyperlipidemia. 6. Hyperkalemia, resolved. 7. Prior fever. RECOMMENDATIONS: Antibiotics per Infectious Disease. Monitor patient on telemetry while admitted. Evaluation of anemia and positive stool occult blood per GI. Continue current cardiac medications. Recommend resuming aspirin and Plavix after GI evaluation is complete. No further cardiac evaluation is indicated at this time. The patient's echocardiogram demonstrated preserved LV systolic function with LVEF of 50% to 55% with impaired LV relaxation. Thank you for this consult. We will continue to follow. Job#: [id number] DARVIN
[2018-01-11] MEDS ORDERED: LIDOCAINE HCL 2% LOCAL INJ 5 ML SDV VIAL INJ ONE (17:43)
[2018-01-11] MEDS ORDERED: PROPOFOL IV EMULSION 10 MG/ML 50 ML VIAL ONE (17:43)
[2018-01-11 20:00] VITALS: BP 117/58
[2018-01-11] MEDS ORDERED: CITRATE OF MAGNESIA 300ML BOTTLE PO ONE (23:15)
[2018-01-12] VITALS (8 sets, daily range): BP systolic 105–154; BP diastolic 57–73
[2018-01-12] MEDS ORDERED: CITRATE OF MAGNESIA 300ML BOTTLE PO ONE ×2 (00:30→08:00)
[2018-01-12] MEDS: METRONIDAZOLE 500MG/NS 100ML 100 ML IV SCH ×4 (00:34→22:05)
[2018-01-12] MEDS: MONTELUKAST SODIUM 10 MG TAB PO SCH ×2 (00:34→21:00)
[2018-01-12] MEDS: SIMVASTATIN 40 MG TAB PO SCH ×2 (00:34→21:00)
[2018-01-12] MEDS: MIRTAZAPINE 15 MG TAB PO SCH ×2 (00:34→21:00)
[2018-01-12] MEDS: CEFEPIME HCL 1 GM VIAL IV SCH ×2 (05:51→17:50)
[2018-01-12 07:18] LABS: BASOPHILS # (AUTO) 0.1 (0.0-0.1); BASOPHILS % 0.4 % (0.0-1.0); EOSINOPHILS # (AUTO) 0.1 (0.0-0.4); EOSINOPHILS % 0.9 % (0.0-6.0); HEMATOCRIT 39.5 % (38.2-49.6); HEMOGLOBIN 12.4 g/dL (14.0-18.0); LYMPHOCYTES # (AUTO) 3.7 (1.0-3.2); MEAN CORPUSCULAR HEMOGLOBIN 29.6 pg (28-32); MEAN CORPUSCULAR HGB CONC 31.4 g/dL (31-35); MEAN CORPUSCULAR VOLUME 94.3 fL (81-99); MONOCYTES # (AUTO) 1.4 (0.2-0.8); MONOCYTES % 11.2 % (4.4-11.3); NEUTROPHILS # (AUTO) 6.7 (2.1-6.9); NEUTROPHILS % 55.4 % (38.7-80.0); PLATELET COUNT 406 x10e3/uL (140-360); RED BLOOD COUNT 4.19 x10e6/uL (4.3-5.7); RED CELL DISTRIBUTION WIDTH 15.9 % (11.7-14.4)
[2018-01-12] MEDS: PANTOPRAZOLE SODIUM 40 MG SUSPDR.PKT PO SCH (07:30)
[2018-01-12 07:49] LABS: ANION GAP 12.4 mmol/L (8-16); CALCIUM 9.7 mg/dL (8.4-10.2); CREATININE, SERUM 1.47 mg/dL (0.72-1.25); POTASSIUM 3.4 mmol/L (3.5-5.1)
[2018-01-12] MEDS: DOCUSATE SODIUM LIQD 100 MG/10 ML UDC NG SCH ×2 (09:00→17:00)
[2018-01-12] MEDS: DONEPEZIL PO SCH (09:00)
[2018-01-12] MEDS: RANOLAZINE 500 MG TABSR PO SCH ×2 (09:00→17:00)
[2018-01-12] MEDS: METOPROLOL SUCCINATE 25 MG TAB XL PO SCH (09:00)
[2018-01-12] MEDS: MEMANTINE 10 MG TAB PO SCH (09:00)
[2018-01-12] MEDS: MEMANTINE PO SCH (09:00)
[2018-01-12] MEDS: ASPIRIN 325 MG TAB PO SCH (09:00)
[2018-01-12] MEDS: SERTRALINE HCL 50 MG TAB PO SCH (09:00)
[2018-01-12] MEDS ORDERED: BISACODYL 5 MG TAB EC PO ONE ×2 (09:00→09:30)
[2018-01-12] MEDS ORDERED: POTASSIUM CHLORIDE 10 MEQ TABCR PO NR (11:45)
[2018-01-12] MEDS ORDERED: PROPOFOL IV EMULSION 10 MG/ML 50 ML VIAL ONE (13:35)
[2018-01-12] MEDS ORDERED: LIDOCAINE HCL 2% LOCAL INJ 5 ML SDV VIAL INJ ONE (13:35)
[2018-01-12] MEDS ORDERED: EPHEDRINE SULFATE INJ 50 MG/10 ML SYR ONE (13:35)
[2018-01-13] VITALS (8 sets, daily range): BP systolic 116–169; BP diastolic 57–76
--- NOTE | 2018-01-13 00:43 | Progress Note ---
DATE: January 12, 2018 CARDIOLOGY PROGRESS NOTE SUBJECTIVE: Patient is somnolent, however, nursing staff indicated he walked with physical therapy today. OBJECTIVE: VITAL SIGNS: Temperature 99.4 degrees, pulse 94, respiratory rate 16, blood pressure 123/64, oxygen saturation 96% on room air. GENERAL: Somnolent, in no acute distress. LUNGS: Clear to auscultation bilaterally. No wheezes or crackles. CARDIOVASCULAR: Normal rate, regular rhythm. No murmur. Normal S1, S2. ABDOMEN: Soft, nontender. EXTREMITIES: No edema. CARDIAC MEDICATIONS: 1. Simvastatin 40 mg p.o. nightly. 2. Metoprolol succinate 25 mg p.o. daily. 3. Aspirin 325 mg p.o. daily. 4. Ranolazine 500 mg p.o. b.i.d. LABS: WBC 12.05, hemoglobin 12.4, hematocrit 39.5, platelets 406,000. Sodium 142, potassium 3.4, chloride 111, CO2 22, BUN 26, creatinine 1.47. IMPRESSION: 1. Acute renal failure. 2. Anemia with positive stool occult blood. 3. Coronary artery disease, status post 3-vessel coronary artery bypass graft. 4. Hypertension. 5. Hyperlipidemia. 6. Hyperkalemia, resolved. 7. Status post fever. RECOMMENDATIONS: Antibiotics per infectious disease. Monitor patient on telemetry while admitted. Evaluation of anemia and positive stool occult blood per GI. He has undergone bowel prep and is planned for colonoscopy today. Continue current cardiac medications. Resume aspirin and Plavix after GI evaluation is complete. No further cardiac evaluation is indicated at this time. His echocardiogram does show preserved LV systolic function with LVEF 50% to 55% with impaired LV relaxation. Thank you for this consult. We will continue to follow. Job#: [id number]
[2018-01-13] MEDS: CEFEPIME HCL 1 GM VIAL IV SCH (05:28)
[2018-01-13] MEDS: METRONIDAZOLE 500MG/NS 100ML 100 ML IV SCH ×2 (06:00→14:15)
[2018-01-13 08:08] LABS: CALCIUM 8.5 mg/dL (8.4-10.2); CREATININE, SERUM 1.25 mg/dL (0.72-1.25)
[2018-01-13] MEDS: POTASSIUM CHLORIDE 10 MEQ TABCR PO ONE ×2 (08:32→08:33)
[2018-01-13] MEDS: PANTOPRAZOLE SODIUM 40 MG SUSPDR.PKT PO SCH (08:32)
[2018-01-13] MEDS: DONEPEZIL PO SCH (08:33)
[2018-01-13] MEDS: MEMANTINE PO SCH (08:33)
[2018-01-13] MEDS: ASPIRIN 325 MG TAB PO SCH (09:00)
[2018-01-13] MEDS ORDERED: POTASSIUM CHLORIDE 20MEQ/15ML UDC NG ONE (09:00)
[2018-01-13] MEDS ORDERED: POTASSIUM CHLORIDE 10 MEQ TABCR PO ONE (09:00)
[2018-01-13] MEDS: DOCUSATE SODIUM LIQD 100 MG/10 ML UDC NG SCH ×2 (09:29→16:42)
[2018-01-13] MEDS: RANOLAZINE 500 MG TABSR PO SCH ×2 (09:31→16:42)
[2018-01-13] MEDS: MEMANTINE 10 MG TAB PO SCH (09:31)
[2018-01-13] MEDS: METOPROLOL SUCCINATE 25 MG TAB XL PO SCH (09:32)
[2018-01-13] MEDS: SERTRALINE HCL 50 MG TAB PO SCH (09:32)
[2018-01-13] MEDS ORDERED: POTASSIUM CHLORIDE 20MEQ/15ML UDC PO ONE (12:00)
--- NOTE | 2018-01-13 13:21 | Progress Note ---
DATE: SUBJECTIVE: Patient is without any complaint; however, drowsy. CARDIOVASCULAR MEDICATIONS 1. Metoprolol 25 mg p.o. daily. 2. Ranexa 500 mg p.o. b.i.d. 3. Simvastatin 40 mg p.o. h.s. LABS: WBC 12.05, hemoglobin 12.4, hematocrit 39.5, platelets 406. Sodium 143, potassium 3.0, BUN 33, creatinine 1.25, glucose 97. TELEMETRY: Sinus rhythm. OBJECTIVE VITAL SIGNS: Temperature 96.0, pulse 72, respiratory rate 16, blood pressure 169/76, oxygen saturation 96% on room air. GENERAL: Resting comfortably in bed, does not appear to be in any acute distress. LUNGS: Clear to auscultation throughout. No wheezing, no rhonchi or crackles. CARDIOVASCULAR: Regular rate and rhythm. Normal S1, S2. ABDOMEN: Soft and nontender. LOWER EXTREMITIES: No edema. IMPRESSION 1. Acute renal failure with improving creatinine. 2. Anemia with positive stool occult blood. 3. Coronary artery disease, status post 3-vessel coronary artery graft bypass. 4. Hypertension. 5. Hyperlipidemia. 6. Hyperkalemia, which is now resolved and is hypokalemic this morning. 7. Status post fever. RECOMMENDATION: Antibiotics per infectious disease. Maintain patient on telemetry. Evaluation for anemia continues, reported 2 positive stool occult blood per GI. Patient has undergone a bowel prep and is planned to receive a colonoscopy; however, has not received it yet. Continue the above-listed cardiac medication. Resume aspirin and Plavix once GI evaluation is complete. For now, okay to discontinue antiplatelet therapy. Patient's recent echocardiogram showed preserved left ventricular systolic function with left ventricular ejection fraction of 50-55 with impaired left ventricular relaxation. We will continue to follow closely. DICTATED BY: Gracia Pires NP Job#: [id number] ANITHA
[2018-01-13] MEDS: MONTELUKAST SODIUM 10 MG TAB PO SCH (21:35)
[2018-01-13] MEDS: SIMVASTATIN 40 MG TAB PO SCH (21:35)
[2018-01-13] MEDS: MIRTAZAPINE 15 MG TAB PO SCH (21:35)
[2018-01-14] VITALS (7 sets, daily range): BP systolic 103–134; BP diastolic 57–74
[2018-01-14 08:00] LABS: BASOPHILS % 0.3 % (0.0-1.0); EOSINOPHILS # (AUTO) 0.1 (0.0-0.4); EOSINOPHILS % 1.3 % (0.0-6.0); HEMATOCRIT 32.5 % (38.2-49.6); HEMOGLOBIN 10.4 g/dL (14.0-18.0); LYMPHOCYTES # (AUTO) 1.5 (1.0-3.2); LYMPHOCYTES % 16.6 % (18.0-39.1); MEAN CORPUSCULAR HEMOGLOBIN 30.4 pg (28-32); MONOCYTES # (AUTO) 0.9 (0.2-0.8); MONOCYTES % 9.9 % (4.4-11.3); NEUTROPHILS # (AUTO) 6.5 (2.1-6.9); NEUTROPHILS % 71.2 % (38.7-80.0); PLATELET COUNT 342 x10e3/uL (140-360); RED BLOOD COUNT 3.42 x10e6/uL (4.3-5.7); RED CELL DISTRIBUTION WIDTH 16.1 % (11.7-14.4)
[2018-01-14 08:11] LABS: BLOOD UREA NITROGEN 30 mg/dL (7-26); BUN/CREATININE RATIO 27 (6-25); CALCIUM 9.1 mg/dL (8.4-10.2); CARBON DIOXIDE 24 mmol/L (22-29); CHLORIDE 118 mmol/L (98-107); CREATININE, SERUM 1.12 mg/dL (0.72-1.25); EST GLOMERULAR FILTRATION RATE > 60 ML/MIN (60-); GLUCOSE 100 mg/dL (74-118); SODIUM 147 mmol/L (136-145)
[2018-01-14] MEDS ORDERED: BISACODYL 5 MG TAB EC PO ONE (08:30)
[2018-01-14] MEDS: PANTOPRAZOLE SODIUM 40 MG SUSPDR.PKT PO SCH (08:45)
[2018-01-14] MEDS: MEMANTINE PO SCH (09:00)
[2018-01-14] MEDS: DONEPEZIL PO SCH (09:00)
[2018-01-14] MEDS: DOCUSATE SODIUM LIQD 100 MG/10 ML UDC NG SCH ×2 (09:55→16:08)
[2018-01-14] MEDS: MEMANTINE 10 MG TAB PO SCH (09:55)
[2018-01-14] MEDS: RANOLAZINE 500 MG TABSR PO SCH ×2 (09:56→17:31)
[2018-01-14] MEDS: METOPROLOL SUCCINATE 25 MG TAB XL PO SCH (09:56)
[2018-01-14] MEDS: SERTRALINE HCL 50 MG TAB PO SCH (09:56)
[2018-01-14] MEDS: MIRTAZAPINE 15 MG TAB PO SCH (22:13)
[2018-01-14] MEDS: MONTELUKAST SODIUM 10 MG TAB PO SCH (22:13)
[2018-01-14] MEDS: SIMVASTATIN 40 MG TAB PO SCH (22:13)
[2018-01-15] VITALS: BP 141/76
[2018-01-15 04:00] VITALS: BP 136/70
[2018-01-15 07:23] VITALS: BP 116/63
[2018-01-15 07:25] LABS: BASOPHILS % 0.3 % (0.0-1.0); EOSINOPHILS # (AUTO) 0.1 (0.0-0.4); EOSINOPHILS % 1.4 % (0.0-6.0); HEMATOCRIT 32.9 % (38.2-49.6); HEMOGLOBIN 10.4 g/dL (14.0-18.0); LYMPHOCYTES # (AUTO) 2.1 (1.0-3.2); LYMPHOCYTES % 21.1 % (18.0-39.1); MEAN CORPUSCULAR HEMOGLOBIN 30.3 pg (28-32); MEAN CORPUSCULAR HGB CONC 31.6 g/dL (31-35); MEAN CORPUSCULAR VOLUME 95.9 fL (81-99); MONOCYTES # (AUTO) 0.8 (0.2-0.8); MONOCYTES % 8.2 % (4.4-11.3); NEUTROPHILS # (AUTO) 6.7 (2.1-6.9); NEUTROPHILS % 68.5 % (38.7-80.0); PLATELET COUNT 351 x10e3/uL (140-360); RED BLOOD COUNT 3.43 x10e6/uL (4.3-5.7); RED CELL DISTRIBUTION WIDTH 16.2 % (11.7-14.4)
[2018-01-15 07:37] LABS: INR 1.3; PARTIAL THROMBOPLASTIN TIME 33.7 seconds (23.8-35.5); PROTHROMBIN TIME 15.2 seconds (11.9-14.5)
[2018-01-15 07:46] LABS: ALANINE AMINOTRANSFERASE 33 IU/L (0-55); ALBUMIN 2.9 g/dL (3.5-5.0); ALBUMIN/GLOBULIN RATIO 0.8 (0.8-2.0); ALKALINE PHOSPHATASE 48 IU/L (40-150); ANION GAP 8.9 mmol/L (8-16); BLOOD UREA NITROGEN 25 mg/dL (7-26); BUN/CREATININE RATIO 26 (6-25); CARBON DIOXIDE 26 mmol/L (22-29); CHLORIDE 117 mmol/L (98-107); CREATININE, SERUM 0.95 mg/dL (0.72-1.25); EST GLOMERULAR FILTRATION RATE > 60 ML/MIN (60-); GLUCOSE 91 mg/dL (74-118); POTASSIUM 3.9 mmol/L (3.5-5.1); SODIUM 148 mmol/L (136-145)
[2018-01-15] MEDS: MEMANTINE PO SCH (09:00)
[2018-01-15] MEDS: DONEPEZIL PO SCH (09:00)
[2018-01-15] MEDS: MEMANTINE 10 MG TAB PO SCH (09:50)
[2018-01-15] MEDS: RANOLAZINE 500 MG TABSR PO SCH ×2 (09:50→16:11)
[2018-01-15] MEDS: PANTOPRAZOLE SODIUM 40 MG SUSPDR.PKT PO SCH (09:50)
[2018-01-15] MEDS: DOCUSATE SODIUM LIQD 100 MG/10 ML UDC NG SCH ×2 (09:50→16:10)
[2018-01-15] MEDS: SERTRALINE HCL 50 MG TAB PO SCH (09:50)
[2018-01-15] MEDS: METOPROLOL SUCCINATE 25 MG TAB XL PO SCH (09:50)
[2018-01-15] MEDS ORDERED: SODIUM CHLORIDE 0.9% 250ML 250 ML ONE (11:29)
[2018-01-15] MEDS ORDERED: CEFEPIME HCL 1 GM VIAL IV SCH (11:30)
[2018-01-15] MEDS ORDERED: DEXTROSE 5% 500ML 500 ML IV SCH (12:15)
--- NOTE | 2018-01-15 12:45 | Progress Note ---
DATE: January 15, 2018 CARDIOLOGY PROGRESS NOTE SUBJECTIVE: Patient is awake; but due to baseline dementia, he is unable to answer questions. OBJECTIVE VITAL SIGNS: Temperature 97.8 degrees, pulse 74, respiratory rate 20, blood pressure 116/63, oxygen saturation 97% on room air. GENERAL: Awake, in no acute distress. LUNGS: Clear to auscultation bilaterally. No wheezes or crackles. CARDIOVASCULAR: Normal rate, regular rhythm. No murmur. Normal S1, S2. ABDOMEN: Soft, nontender. EXTREMITIES: No edema. CARDIAC MEDICATIONS 1. Metoprolol succinate 25 mg p.o. daily. 2. Ranolazine 500 mg p.o. b.i.d. 3. Simvastatin 40 mg p.o. nightly. LABS: WBC 6.75, hemoglobin 10.4, hematocrit 32.9, platelets 351,000. Sodium 148, potassium 3.9, chloride 117, CO2 26, BUN 25, creatinine 0.95. INR 1.3. TELEMETRY: Normal sinus rhythm. IMPRESSION 1. Acute renal failure, improving. 2. Anemia with positive stool occult blood. 3. Coronary artery disease, status post 3-vessel coronary artery bypass graft. 4. Hypertension. 5. Hyperlipidemia. 6. Hyperkalemia, resolved. 7. Status post fever. RECOMMENDATIONS: Antibiotics per infectious disease. Continue the patient on telemetry. EGD and colonoscopy only demonstrated gastritis and internal hemorrhoids. Will discuss with GI if we may resume aspirin and Plavix. The patient's echocardiogram demonstrated preserved LV systolic function with LVEF 50% to 55% with impaired LV relaxation. Continue current cardiac medications. Thank you for this consult. We will continue to follow. Job#: [id number]
[2018-01-15] MEDS ORDERED: METRONIDAZOLE 500MG/NS 100ML 100 ML IV SCH (14:00)
--- NOTE | 2018-01-16 11:06 | Operative Report ---
DATE OF PROCEDURE: January 11, 2018 REFERRING PHYSICIAN: Nancy Villagomez MD PROCEDURE PERFORMED: Esophagogastroduodenoscopy with biopsies. INDICATIONS FOR EGD: Anemia and guaiac-positive stools. MEDICATION: Patient was done under MAC. Please see anesthesiologist's note. PROCEDURE: With the patient in the left lateral decubitus position, the flexible fiberoptic Olympus gastroscope was introduced into the esophagus under direct visualization without any difficulty. There was some patchy erythema noted in the distal esophagus. The scope was then advanced with ease into the stomach, traversing a moderate-size hiatal hernia. Mucosa overlying the antrum and the body revealed some patchy intense erythema and low-grade to moderate edema, and biopsies were obtained and sent to stain for H. pylori. The pylorus was of normal contour and shape. It was intubated with ease, and the scope was advanced all the way to the 2nd portion of the duodenum. The scope was then withdrawn slowly. Mucosa overlying the proximal 2nd portion and the duodenal bulb appeared to be within normal limits. The scope was then withdrawn back into the stomach and retroflexed. Mucosa overlying the fundus appeared to be within normal limits. The previously described hiatal hernia was also noted in the retroflexed position. The scope was then straightened out. The stomach was decompressed. Scope was subsequently withdrawn. Patient tolerated the procedure well. IMPRESSION 1. Mild distal esophagitis. 2. Moderate-size hiatal hernia. 3. Gastritis, biopsied. Biopsies sent to stain for H. pylori. PLAN: Follow up histology. Findings do not explain the patient's anemia. Patient will need a colonoscopy. Job#: [id number] cc:NANCY VILLAGOMEZ MD
== END 2018-01-15 17:06 | DRG 871 ==
LOC: ER 16:16 → ERHOLD 20:33 → ICU 20:51 → MED/SURG 01-04 15:24
PROC: 30233N1 Transfusion of Nonautologous Red Blood Cells into Peripheral Vein, Percutaneous Approach (ICD-10-PCS; 2018-01-11)
PROC: 0DB78ZX Excision of Stomach, Pylorus, Via Natural or Artificial Opening Endoscopic, Diagnostic (ICD-10-PCS; principal; 2018-01-11 14:33)
PROC: 0DJD8ZZ Inspection of Lower Intestinal Tract, Via Natural or Artificial Opening Endoscopic (ICD-10-PCS; 2018-01-12)
DX: A41.9 Sepsis, unspecified organism (principal); J69.0 Pneumonitis due to inhalation of food and vomit; N17.0 Acute kidney failure with tubular necrosis; I50.33 Acute on chronic diastolic (congestive) heart failure; G93.40 Encephalopathy, unspecified; N39.0 Urinary tract infection, site not specified; I13.0 Hypertensive heart and chronic kidney disease with heart failure and stage 1 through stage 4 chronic kidney disease, or unspecified chronic kidney disease; I25.810 Atherosclerosis of coronary artery bypass graft(s) without angina pectoris; K92.1 Melena; E87.5 Hyperkalemia; E86.0 Dehydration; N18.3 Chronic kidney disease, stage 3 (moderate); E78.5 Hyperlipidemia, unspecified; K59.00 Constipation, unspecified; D50.0 Iron deficiency anemia secondary to blood loss (chronic); D63.1 Anemia in chronic kidney disease; K64.8 Other hemorrhoids; G30.9 Alzheimer's disease, unspecified; F02.80 Dementia in other diseases classified elsewhere, unspecified severity, without behavioral disturbance, psychotic disturbance, mood disturbance, and anxiety; F32.9 Major depressive disorder, single episode, unspecified; K29.70 Gastritis, unspecified, without bleeding; K44.9 Diaphragmatic hernia without obstruction or gangrene; K20.9 Esophagitis, unspecified; S80.02XA Contusion of left knee, initial encounter; W01.0XXA Fall on same level from slipping, tripping and stumbling without subsequent striking against object, initial encounter; Y93.01 Activity, walking, marching and hiking; Y92.009 Unspecified place in unspecified non-institutional (private) residence as the place of occurrence of the external cause; M17.0 Bilateral primary osteoarthritis of knee; R53.81 Other malaise; Z79.02 Long term (current) use of antithrombotics/antiplatelets; Z79.82 Long term (current) use of aspirin; E87.6 Hypokalemia
CPT/HCPCS: 36415; 43239; 45378; 71045; 71046; 74018; 74176; 76770; 80048; 80053; 80076; 81001; 81015; 82150; 82270; 82550; 82570; 82728; 82947; 82948; 83540; 83605; 83690; 83735; 83935; 84100; 84133; 84156; 84295; 84300; 84443; 84466; 84484; 84520; 85025; 85610; 85730; 86850; 86900; 86920; 87040; 87086; 87493; 88305; 88312; 93005; 93306; 93976; 96367; 96376; 97139; 99284; J0610; J0692; J1940; J2001; J2060; J2405; J2765; J2916; J3486; J7030; J7040; J7050; J7060; J7070; J7799; P9016; Q4081